=== PATIENT | female | born 1990 | race Caucasian/White ===

== ENCOUNTER → 2019-07-14 | Outpatient (CLI) | payer BC, SELFPAY ==
[2019-07-14 09:59] VITALS: BMI 24.3
[2019-07-16 12:52] LABS: HPV APTIMA, High Risk Negative (Negative)
== END | disposition home or self-care (01) ==
LOC: LABSPEC 11:26
PROVIDERS: Referring Provider Obstetrics & Gynecology; Visit Provider Obstetrics & Gynecology
DX: Z12.4 Encounter for screening for malignant neoplasm of cervix (principal)
CPT/HCPCS: 87624; 88175; G0145

== ENCOUNTER → 2020-03-03 14:48 | Outpatient (CLI) | payer OTHER, SELFPAY ==
[2020-03-03 13:57] VITALS: BMI 24.3
== END ==
PROVIDERS: Referring Provider Obstetrics & Gynecology; Visit Provider Obstetrics & Gynecology
DX: Z34.90 Encounter for supervision of normal pregnancy, unspecified, unspecified trimester (principal)
CPT/HCPCS: 36415; 86850; 86900; 86901

== ENCOUNTER 2021-04-06 16:43 | Outpatient (RCR) | payer OTHER, SELFPAY ==
[2020-03-11 13:09] VITALS: BMI 24.3
== END 2021-05-11 23:59 ==
LOC: IMMUN 16:43
PROVIDERS: PCP Internal Medicine; Visit Provider Family Medicine
DX: Z23 Encounter for immunization (principal)
CPT/HCPCS: 0001A; 0002A; 91300

== ENCOUNTER → 2021-05-02 15:32 | Outpatient (CLI) | payer OTHER, SELFPAY ==
[2020-03-11 13:09] VITALS: BMI 24.3
--- NOTE | 2021-05-02 16:00 | MRI_ITS ---
STUDY: MR PELVIS WITH T WITHOUT CONTRAST REASON FOR EXAM: Female, 31 years old. CONGENITAL MALFORMATION OF UTERUS TECHNIQUE: Standardized fat and water weighted pulse sequences were obtained in all 3 orthogonal planes, pre-and post contrast administration. 15ml DOtarem via IV was administered for the contrast portion of the examination. COMPARISON: None. FINDINGS: Normal urinary bladder. Normal visualized small intestine. Normal visualized colon. There is splitting of the endometrial cavity within the uterus consistent with a uterine anomaly. The uterine fundus has a flat to slightly convex of the serosal margin and contains a 1.5 cm round hypointense mass consistent with a fibroid. The angle between the uterine cavities is 58 degrees. Findings are consistent with a septate uterus. The septum extends inferiorly into the lower uterine segment but not into the cervix where there is a small nabothian cyst. The septum is fibrous within the lower uterine segment but with intervening myometrium in the upper body and fundus the uterus. A small (4 mm) cyst is seen in the endometrium on the left. There is no pelvic fluid. There is no pelvic mass lesion or lymphadenopathy. Normal visualized pelvic arteries. Normal osseous structures. Normal abdominal wall. MRI/Pelvis W/WO Contrast IMPRESSION: Septate uterus as described above. Electronically Signed: Zhang Adams MD at 9:48 EDT Tel , Service support ,
== END ==
PROVIDERS: PCP Internal Medicine; Referring Provider Obstetrics & Gynecology Reproductive Endocrinology; Visit Provider Obstetrics & Gynecology Reproductive Endocrinology
DX: Q51.28 Other and unspecified doubling of uterus (principal)
CPT/HCPCS: 72197; A9575

== ENCOUNTER 2021-11-17 13:08 | Outpatient (CLI) | payer OTHER, SELFPAY ==
[2021-11-17 13:29] LABS: Absolute Lymphocyte Count 1.59 X10^3/uL (0.83-4.51); Absolute Neutrophil Count 9.1 X10^3/uL (2.0-7.7); Basophil# 0.01 X10^3/uL; Basophil% 0.1 % (0-1); Eosinophil# 0.03 X10^3/uL; Eosinophils% 0.3 % (0-5); Hematocrit 33.4 % (37-47); Hemoglobin 11.3 g/dL (12.0-15.0); Lymphocyte # 1.59 X10^3/ul (0.83-4.51); Lymphocyte % 14.2 % (19-41); Mean Corp Hgb Conc 33.8 g/dL (32-36); Mean Corpuscular Hgb 30.3 pg (27.0-32.0); Mean Corpuscular Volume 89.5 fL (81-99); Mean Platelet Vol. 10.7 fl (6.2-12.0); Monocyte# 0.47 X10^3/uL; Monocyte% 4.2 % (0-10); NRBC Flagged by Analyzer 0 % (0-5); Neutrophil # 9.09 X10^3/uL (2.7-7.7); Platelet Count 225 K/mm3 (150-450); RBC Distribution Width CV 12.5 % (11.6-14.6); RBC Distribution Width SD 40.6 fl (35.1-43.9); Red Blood Count 3.73 M/mm3 (4.2-5.4); White Blood Count 11.2 K/mm3 (4.4-11.0)
[2021-11-17 13:36] LABS: Glucose Challenge Gest 1H 50g 166 mg/dL (70-140)
== END 2021-11-17 23:59 | disposition short-term general hospital (02) ==
LOC: PAVLAB 13:09
PROVIDERS: PCP Internal Medicine; Referring Provider Obstetrics & Gynecology; Visit Provider Obstetrics & Gynecology
DX: O26.899 Other specified pregnancy related conditions, unspecified trimester (principal); Z67.91 Unspecified blood type, Rh negative; Z3A.00 Weeks of gestation of pregnancy not specified; Z13.1 Encounter for screening for diabetes mellitus
CPT/HCPCS: 36415; 82950; 85025; 86850; 86900; 86901

== ENCOUNTER 2021-11-23 06:56 | Outpatient (CLI) | payer OTHER, SELFPAY ==
[2021-11-23 07:36] LABS: Glucose GTT-Gestation. Fasting 93 mg/dL (<105)
[2021-11-23 09:01] LABS: Glucose GTT-Gestational 1 Hr 227 mg/dL (<190)
[2021-11-23 10:02] LABS: Glucose GTT-Gestational 2 Hr 202 mg/dL (<165)
[2021-11-23 10:49] LABS: Glucose GTT-Gestational 3 Hr 131 L (<145)
== END 2021-11-23 23:59 | disposition short-term general hospital (02) ==
LOC: LAB 06:57
PROVIDERS: PCP Internal Medicine; Referring Provider Obstetrics & Gynecology; Visit Provider Obstetrics & Gynecology
DX: O99.810 Abnormal glucose complicating pregnancy (principal); Z3A.00 Weeks of gestation of pregnancy not specified
CPT/HCPCS: 36415; 82951; 82952

== ENCOUNTER 2021-12-19 14:00 | Outpatient (RCR) | payer OTHER, SELFPAY | END 2022-01-08 23:59 | LOC: DC 14:00 | PROVIDERS: PCP Internal Medicine; Visit Provider Nurse Practitioner Women's Health | DX: O24.419 Gestational diabetes mellitus in pregnancy, unspecified control (principal) | CPT/HCPCS: 97802; 97803 ==

== ENCOUNTER 2022-01-12 17:08 | Outpatient (CLI) | payer OTHER, SELFPAY | END 2022-01-12 23:59 | disposition home or self-care (01) | PROVIDERS: PCP Internal Medicine; Visit Provider Obstetrics & Gynecology | DX: Z34.90 Encounter for supervision of normal pregnancy, unspecified, unspecified trimester (principal) | CPT/HCPCS: 87081 ==

== ENCOUNTER 2022-01-15 14:24 | Outpatient (CLI) | payer OTHER, SELFPAY ==
--- NOTE | 2022-01-15 14:29 | US_ITS ---
STUDY: SECOND AND THIRD TRIMESTER OBSTETRICAL ULTRASOUND - LIMITED REASON FOR EXAM: Female, 32 years old growth @ 36 weeks LMP: 05/05/2021 PRIOR ULTRASOUND: None. TECHNIQUE: Transabdominal TECHNICAL QUALITY: Adequate. FINDINGS: There is a single intrauterine fetus. The fetus is in a cephalic presentation. There is demonstrated cardiac activity with a heart rate of 125 bpm. There is a normal amniotic fluid volume. The largest amniotic fluid pocket measures 6.33 cm. The amniotic fluid index (RODERICK) is 15.8 cm. The placenta is anterior in location and is not low lying. There are Grade 1 placental changes. BIOMETRY: BPD: 8.58 cm: 34 weeks, 4 days HC: 31.09 cm: 34 weeks, 5 days AC: 32.66 cm: 36 weeks, 4 days FL: 6.9 cm: 35 weeks, 2 days Age by LMP: 36 weeks, 3 days. KAREN by LMP: 02/10/2020. age by current US: 35 weeks, 0 days. KAREN by current US: 02/19/2022. Estimated weight: 2834 grams, +/- 425 grams, 43 percentile. US/OB Limited With Biometrics IMPRESSION: Single live intrauterine gestation with a mean gestational age of 35 weeks. Electronically Signed: Sung Miller MD at 15:41 EST ,
== END 2022-01-15 23:59 | disposition home or self-care (01) ==
PROVIDERS: PCP Internal Medicine; Visit Provider Nurse Practitioner Women's Health
DX: O24.410 Gestational diabetes mellitus in pregnancy, diet controlled (principal); Z3A.36 36 weeks gestation of pregnancy
CPT/HCPCS: 76816

== ENCOUNTER 2022-01-23 17:15 | Inpatient (IN) | payer OTHER, SELFPAY ==
[2022-01-23] VITALS (17 sets, daily range): BP systolic 113–140; BP diastolic 58–96; PULSE 50–67; RESP 16–18; TEMP 36.1–36.9; O2SAT 96–100; BMI 30.2
--- NOTE | 2022-01-23 16:06 | US_ITS ---
STUDY: OBSTETRICAL ULTRASOUND - BIOPHYSICAL PROFILE REASON FOR EXAM: Female, 32 years old. Deceleration in doctor''s office. LMP: 05/05/2021 PRIOR ULTRASOUND: 01/15/2022. TECHNIQUE: Transabdominal TECHNICAL QUALITY: Adequate. FINDINGS: There is a single intrauterine fetus. The fetus is in a cephalic presentation. There is demonstrated cardiac activity with a heart rate of 152 bpm. There is a normal amniotic fluid volume. The largest amniotic fluid pocket measures 6.29 cm. The amniotic fluid index (RODERICK) is 17.34 cm. The placenta is anterior in location and is not low lying. There are Grade 1 placental changes. Age by LMP: 37 weeks, 4 days. KAREN by LMP: 02/09/2022. age by prior US: 36 weeks, 1 days. KAREN by prior US: 12/22/2021. BIOPHYSICAL PROFILE: Breathing Movements (FBM): 0 Gross Body Movements (GBM): 0 Tone (FT): 2 Amniotic Fluid Volume (AFV): 2 TOTAL SCORE: US/Biophysical Prof W/O Non Stres IMPRESSION: biophysical profile of 02/16. Electronically Signed: Macho Wyman DO at 19:10 EDT ,
[2022-01-23] MEDS: Lactated Ringers 1,000 ML 999 ML IV (17:35)
[2022-01-23 17:49] LABS: Absolute Lymphocyte Count 1.72 X10^3/uL (0.83-4.51); Basophil# 0.01 X10^3/uL; Basophil% 0.1 % (0-1); Eosinophil# 0.02 X10^3/uL; Eosinophils% 0.2 % (0-5); Hemoglobin 11.9 g/dL (12.0-15.0); Lymphocyte # 1.72 X10^3/ul (0.83-4.51); Lymphocyte % 20.8 % (19-41); Mean Corpuscular Hgb 29.1 pg (27.0-32.0); Mean Corpuscular Volume 85.6 fL (81-99); Mean Platelet Vol. 12.5 fl (6.2-12.0); Monocyte% 6.1 % (0-10); NRBC Flagged by Analyzer 0 % (0-5); Neutrophil # 5.99 X10^3/uL (2.7-7.7); Neutrophil % 72.6 % (47-70); Platelet Count 209 K/mm3 (150-450); RBC Distribution Width SD 39.6 fl (35.1-43.9); Red Blood Count 4.09 M/mm3 (4.2-5.4); White Blood Count 8.3 K/mm3 (4.4-11.0)
[2022-01-23 17:51] LABS: Bedside Glucose 93 mg/dL (74-106)
[2022-01-23] MEDS: Sodium Citrate/Citric Acid 30 ML UDC PO (17:54)
[2022-01-23] MEDS: Acetaminophen 500 MG Tablet 1000 MG PO (17:54)
[2022-01-23] MEDS: Cefazolin 2 GM in 0.9% Normal Saline 100 ML IV (18:09)
--- NOTE | 2022-01-23 18:28 | PLAC_PTH ---
PATIENT: TOMAS CAMPBELL LOC: [facility] U#:[id number] AGE/SX: 32/F ROOM: 009 RE01/23/[address]: Dr. Luba Colby DO : 1990 BED: 1 DIS: 01/25/2022 SPEC #: [id number] RECD: 01/23/22 22:48 STATUS: TUCKER KELLE #: [id number] FEMI: 01/23/22 18:[address]: Luba Colby DEPT: SURGICAL PATHOLOGY RECD BY: Ashwini Jaquez ENTERED: 01/24/22 09:09 SP TYPE: PLACENTA OTHR DR: Dr. Angelica Aly MD Tissues: Placenta, NOS Procedures: Surgery Specimen Level V HEADER OPERATION: PRE-OP DIAGNOSIS: Nonreactive strip and diabetic TISSUE SUBMITTED: Placenta MICROSCOPIC DIAGNOSIS Shelton placenta (478 gm): Umbilical cord ? trivascular with no inflammation. Placental membranes ? pigmented macrophages suggestive of meconium staining. Placental disc ? Luis E-Krish change and mildly increased intraparenchymal fibrin plaques. AM:abdon 01/25/2022 MICROSCOPIC DESCRIPTION Slides are reviewed. GROSS DESCRIPTION SPECIMEN: PLACENTA / CLINICAL INFORMATION: A. Weight: 2.785 kg B. Gestational Age: 37 weeks C. Sex: Female PLACENTAL WEIGHT (POST FIXATION): 478 gm PLACENTAL DIMENSIONS: 17 x 13 x 3 cm PLACENTAL SHAPE: Usual ovoid PLACENTAL WEIGHT FOR GESTATIONAL AGE: Within 10-99th percentile MEMBRANES - Present A. Insertion: Marginal B. Site of rupture from edge: At edge of placental disc C. Color of membrane: Jay-echevarria D. Abnormalities: None UMBILICAL CORD - Present A. Color: Jay-echevarria B. Insertion: Eccentric C. Length: 56 cm D. Diameter: 1 cm E. Number of vessels: Three F. Abnormalities: The umbilical cord shows significant spiraling. PLACENTAL DISC - Present A. Color of surface: Jay-echevarria B. surface abnormalities: None C. Maternal cotyledons: Intact with minimal tears D. Attached retro placental clot: No clot E. Cut surface: Dark red and spongy F. Lesions: None G. Separate clot: 7 x 5 x 1 cm SECTIONS SUBMITTED: 1. Umbilical cord ( end notched) 2. Umbilical cord, placental end 3. Membrane roll 4. Placental disc, and maternal surfaces 5. Placental disc, and maternal surfaces 6. Placental disc, and maternal surfaces AM:abdon 01/24/2022 TC:5 CPT: 82213
--- NOTE | 2022-01-23 18:54 | HP.PCM.OB_ITS ---
HPI - General General Date of Admission: 01/23/22 HPI Narrative TOMAS CAMPBELL, is a 32 F who presents to L&D after a non-reactive NST was noted. A BPP was performed and found to be 4/8. the tracing was also noted to have minimal variability with small variable decelerations. The decision was made to proceed with an urgent section. The patient denied vaginal bleeding or decreased movement. Maternal Data Information KAREN Calculator Estimated Delivery Date Method Current WG Current Estimate 02/09/22 LMP (Certain) 37w 4d PFSH PFS Medical History Abnormal Pap smear of cervix Gestational diabetes Septate uterus Home Medications Saccharomyces boulardii 250 mg capsule 250 mg PO BID 08/14/21 [History Last Taken Unknown] vitamin#30 30 mg iron-10 mg iron-folic acid 1 mg-omg3 capsule cap PO 08/14/21 [History Last Taken Unknown] blood sugar diagnostic #100 ea 11/23/21 [Rx Last Taken Unknown] blood-glucose meter #1 ea 11/23/21 [Rx Last Taken Unknown] breast pump #1 ea 12/01/21 [Rx Last Taken Unknown] Tresiba FlexTouch U-100 100 unit/mL (3 mL) subcutaneous pen 10 unit SUBCUT DAILY #6 ml NS 01/04/22 [Rx Last Taken Unknown] pen needle, diabetic 32 gauge x /32 #50 ea 01/04/22 [Rx Last Taken Unknown] Allergy/AdvReac Type Severity Reaction Status Date / Time No Known Allergies Allergy Verified 01/23/22 15:06 Family History Grandfather Sudden cardiac Myocardial infarction Mother Heart disease Surgical History Status post colposcopy Vaginal septum Social History Smoking Status: Former smoker alcohol intake: current details: pre substance use type: does not use caffeine: Yes what type of physical activity do you participate in: walking and aerobics frequency: 3-4 times per week seatbelt use: always do you feel safe at home: Yes additional social history: Suman- Suresh 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 questions answered. special requests: [] Plans Covid status: [employer] Flu vaccine: given Tdap vaccine: given Rhogam: given LARC form signed: Yes movement and labor precautions reviewed. Problem list reviewed and updated with the most current plan of care details and appropriate orders placed. Relevant counseling for the gestational age provided. Continue routine care and follow up unless otherwise noted in visit notes/problem list details OB Flowsheet Initial Weight: 160 lb Date -?-?-?-?-?-?-?-?-?-?-?-?- EGA Weight BP Urine Prot -?-?-?-?-?-?-?-?-?-?-?-?- Glucose FHR FuHt Pres Dilation -?-?-?-?-?-?-?-?-?-?-?-?- Effaced St Visit Note 08/14/21 -?-?-?-?-?-?-?-?-?-?-?-?- 14w 3d 160 lb (+0 oz) 120/62 -?-?-?-?-?-?-?-?-?-?-?-?- 145 -?-?-?-?-?-?-?-?-?-?--?-?- SM- [facility]. no vb cramping 09/13/21 -?-?-?-?-?-?-?-?-?-?-?-?- 18w 5d 163 lb 4 oz (+3 lb 4 oz) 118/70 Negative -?-?-?-?-?-?-?-?-?-?-?-?- Negative 154 -?-?-?-?-?-?-?-?-?-?-?-?- -No VB, LOF. F arun vaccine today. MFM anatomy US ordered. 2nd ROR from [facility] for PNL sent 10/17/21 -?-?-?-?-?-?-?-?-?-?-?-?- 23w 4d Negative -?-?-?-?-?-?-?-?-?-?-?-?- Negative -?-?-?-?-?-?-?-?-?-?-?-?- JV- no complaint s today. GCT info given today. plan to do next visit with rhogam 11/17/21 -?-?-?-?-?-?-?-?-?-?-?-?- 28w 0d 178 lb 4 oz (+18 lb 4 oz) 120/80 Negative -?-?-?-?-?-?-?-?-?-?-?-?- Negative 145 -?-?-?-?-?-?-?-?-?-?-?-?- JV- no lof, vagi nal bleeding ,or dec fm. failed 1 hr. will do the 3 hr next week. 12/01/21 -?-?-?-?-?-?-?-?-?-?-?-?- 30w 0d 179 lb 8 oz (+19 lb 8 oz) 122/72 Negative -?-?-?-?-?-?-?-?-?-?-?-?- Negative -?-?-?-?-?-?-?-?-?-?-?-?- JV- highest gluc ose is 120, fasting 80's-90's. no lof, vaginal bleeding, or dec fm. 12/12/21 -?-?-?-?-?-?-?-?-?-?-?-?- 31w 4d 182 lb 2 oz (+22 lb 2 oz) 114/78 Negative -?-?-?-?-?-?-?-?-?-?-?-?- Negative 145 31 -?-?-?-?-?-?-?-?-?-?-?-?- JV- no lof, vagi nal bleeding, or dec fm. saw endo. continue monitoring. 12/25/21 -?-?-?-?-?-?-?-?-?-?-?-?- 33w 3d 190 lb 4 oz (+30 lb 4 oz) 118/80 Negative -?-?-?-?-?-?-?--?-?-?-?-?- Negative 150 34 -?-?-?-?-?-?-?-?-?-?-?-?- MH-No VB, LOF. G ood FM. Glucose readings WNL. Note for massage. Growth US at 36wk ordered. 01/12/22 -?-?-?-?-?-?-?-?-?-?-?-?- 36w 0d 189 lb (+29 lb) 120/78 Negative -?-?-?-?-?-?-?-?-?-?-?-?- Negative 145 36 1 -?-?--?-?-?-?-?-?-?-?-?-?- -2 JV- no l of, vaginal bleeding, or dec fm. No complaints. labor precautions discussed. GBS collected. 01/19/22 -?-?-?-?-?-?-?-?-?-?-?-?- 37w 0d 187 lb (+27 lb) 130/80 Negative -?-?-?-?-?-?-?-?-?-?-?-?- Negative 140 37 -?-?-?-?-?-?-?-?-?-?-?-?- SM- no vb lof go od fm no regular ctx reviewed US. started insulin with dinner so will stat 2x weekly testing. 01/23/22 -?-?-?-?-?-?-?-?-?-?-?-?- 37w 4d 187 lb (+27 lb) 119/76 119/76 Negative -?-?-?-?-?-?-?-?-?-?-?-?- Negative 130 -?-?-?-?-?-?-?-?-?-?-?-?- MH-nonreactive N ST and to WP 01/23/22 -?-?-?-?-?-?-?-?--?-?-?-?- 37w 4d 131/83 140/96 -?-?-?-?-?-?-?-?-?-?-?-?- -?-?-?-?-?-?-?-?-?-?-?-?- NST FHR Rate Baby A Baseline: 140 Variability:: Absent and Minimal Accelerations:: None Decelerations:: Variable NST Reactive:: Non-Reactive FHR Category:: Category II ROS Constitutional Constitutional: Denies change in weight, fatigue, fever(s), headache(s), poor appetite or weakness Eyes Eyes: Denies blurry vision, change in vision, seeing flashes or spots in vision ENT HEENT: Denies dizziness, headache(s), loss taste/smell or sore throat Cardiovascular Cardiovascular: Denies chest pain, dizziness, dyspnea, irregular heart rhythm, leg edema, palpitations, rapid heart rate or vomiting Respiratory/Chest Respiratory/Chest: Denies chest tightness, cough, dyspnea or breast pain Gastrointestinal Gastrointestinal: Denies abdominal pain, anorexia, constipation, cramping, diarrhea, hemorrhoids, vomiting or weight changes Genitourinary Genitourinary: Denies dysuria, flank pain, genital lesions, genital pain, uri nary frequency or urinary urgency Musculoskeletal Musculoskeletal: Denies back pain, difficulty walking, joint pain, limited range of motion, muscle cramps or numbness Integumentary Integumentary: Denies lesions or unusual bruising Neurologic Neurologic: Denies abnormal movements, abnormal speech, dizziness, numbness, seizure-like activity or syncope Psychiatric Psychiatric: Denies anxiety, behavioral changes, change in appetite, change in libido, cognitive impairment, confusion, depression, difficulty concentrating, hallucinations or suicidal thoughts Endocrine Endocrinology: Denies excessive sweating, polydipsia or polyuria Hematologic/Lymphatic Hematologic/Lymphatic: Denies easy bleeding, easy bruising or lymphadenopathy Allergic/Immunologic Allergic/Immunologic: Denies itchy eyes, lip swelling, seasonal rhinorrhea, rhinitis, throat swelling, tongue swelling, eczemia, wheezing or asthma Vital Signs Vital Signs Vital Signs: 01/23/22 16:09 01/23/22 17:40 Pulse Rate 67 65 Blood Pressure 131/83 H 140/96 H BP Systolic 131 140 BP Diastolic 83 96 Physical Exam Const alert, oriented x3, no apparent distress and healthy appearing General Appearance: cooperative; Negative for anxious HEENT normocephalic Face and Sinus: normal facial exam Eyes EOMs intact bilaterally and no scleral icterus General Eye: normal appearance of both eyes Neck full ROM and supple Lymph Lymphatic: no lymphadenopathy noted Chest Chest: abnormal inspection of the chest Resp normal respiratory effort Effort and Inspection: able to speak in complete sentences Cardio regular rate GI soft to palpation and non-tender Inspection: gravid Palpation: soft; Negative for tender external exam normal Back/Spine no CVA tenderness Extremity normal to inspection, full ROM and no clubbing, cyanosis or edema General Extremity: Negative for calf tenderness or edema Skin Lesions: no lesions Rashes: no rashes Psych mental status grossly normal Labs Labs Labs: Blood Type B NEGATIVE Antibody Screen NEGATIVE Hct 35.0 % (37-47) L Hgb 11.9 g/dL (12.0-15.0) L Pap Smear Negative Obstetrics US Glucose 1 Hr 50 gm 166 mg/dL (70-140) H Assessment & Plan (1) Gestational diabetes: QUALIFIERS: Gestational diabetes mellitus control: diet-controlled Trimester: third trimester Qualified Code(s): O24.410 - Gestational diabetes mellitus in , diet controlled COMMENT: insulin now. 2x weekly nsts and deliver at 39. (2) Abnormal glucose affecting : COMMENT: 3 hr gtt abnormal refer to nutrition and Dr. 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 nipt nl per patient. GBS neg (5) History of recurrent miscarriages: COMMENT: evaluated by [facility]. (6) Supervision of normal : COMMENT: KAREN 02/09/22 girl Suman (7) Uterus didelphys in : COMMENT: left horn. natural conception (8) Rh negative, maternal: COMMENT: Rhogam given 06/24/2021. (9) Abnormal test: PLAN: urgent section now for biophysical profile of 4/10. 2 grams ancef ordered event sales manager noted, anesthesia and BILINGUAL SPEECH THERAPIST paged.
--- NOTE | 2022-01-23 19:05 | OP.PCM_ITS ---
Assessment & Plan (1) Abnormal test: (2) Gestational diabetes: QUALIFIERS: Gestational diabetes mellitus control: diet-controlled Trimester: third trimester Qualified Code(s): O24.410 - Gestational diabetes mellitus in , diet controlled COMMENT: insulin now. 2x weekly nsts and deliver at 39. (3) Abnormal glucose affecting : COMMENT: 3 hr gtt abnormal refer to nutrition and Dr. 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 nipt nl per patient. GBS neg (6) History of recurrent miscarriages: COMMENT: evaluated by [facility]. (7) Supervision of normal : COMMENT: KAREN 02/09/22 girl Suman (8) Uterus didelphys in : COMMENT: left horn. natural conception (9) Rh negative, maternal: COMMENT: Rhogam given 06/24/2021. Maternal Data Information KAREN Calculator Estimated Delivery Date Method Current WG Current Estimate 02/09/22 LMP (Certain) 37w 4d Details Operative Information Date of Procedure: 01/23/22 Pre-Operative Diagnosis: 37 weeks 4 days, non-reactive NST, biophysical profile 02/18 Post-Operative Diagnosis: 37 weeks 4 days, non-reactive NST, biophysical profile 02/18 Classification: ELLIS Procedure Type: low transverse development planner #1: Ana M Owen Type of Anesthesia: Spinal Anesthesiologist: Sterling Reich Antibiotic Given: Ancef 2 grams IV x1 Estimated Blood Loss: 700cc Fluids Replaced: 1500cc Findings Description of Procedure: Spinal anesthesia was placed without difficulty. Cowan catheter was placed. The patient was placed in the dorsal supine position with leftward tilt. Patient was prepped and draped in the normal sterile fashion. Pfannenstiel skin incision was made with the scalpel and carried through to the underlying layer of fascia with the scalpel. Fascia was nicked in the midline and the incision extended laterally. The rectus bellies were dissected off superiorly and inferiorly with out complication both sharply and bluntly. The peritoneum was entered digitally. The incision was stretched and a low transverse uterine incision was made with the scalpel. The infant's head was delivered atraumatically followed by the anterior and posterior shoulders without complication the rest of the delivered. The cord was clamped and cut and the infant was handed off to awaiting nurse. The placenta was delivered spontaneously immediately following and was noted to be intact and have a three- vessel cord. The uterus was exteriorized cleared of all clots and debris, and the incision was closed in a double layer closure using #1 vicryl and #1 Monocryl. The ovaries and fallopian tubes were noted to be within normal limits. The uterus was returned to the maternal abdomen and gutters were cleared of all clots and debris. The peritoneum was closed with 3-0 Monocryl in a running fashion. Gloves were changed prior to fascial closure. Fascia was closed with 0 PDS in a running fashion. Subcutaneous tissue was closed with a 3-0 vicryl and the skin was closed with 3-0 Monocryl in a subcuticular fashion. Mepilex dressing was applied without complication. Patient was taken to recovery in stable condition. It was discussed with the patient that based on the clinical information obtained during this encounter, combined with her history, at this time I would recommend either repeat section or for future deliveries if further pregnancies are desired. Presentation: Positive for Vertex Amniotic Fluid Description: Clear Placental Delivery Description: Manual Removal Placenta Disposition: Sent to Pathology Cord Vessel Description: 3 Vessels Cord Entanglement: None Cord Gases: ABG and VBG Infant A Gender: Female (1 minute): 8 (5 minute): 9 Delayed Cord Clamping: Yes Complications Risks of Surgery Discussed w/Patient: Bleeding, Anesthesia Risks, Infection and Need for Future C-Sections Complications: none Multi Select Codes Urinary/Genital Urinary/Genital CPT Codes: 46004 Delivery [facility]
--- NOTE | 2022-01-23 19:23 | PCM.DC ---
Discharge Instructions Diet Discharge Diet: No restrictions Activity Discharge Activity: May Not Drive (for 2 weeks or while taking narcotic pain medications.), May Shower and May Take a Tub Bath (in 7 days.) May resume sexual activity in: 4-6 weeks Weight Bearing Status: Full weight bearing Lifting Restrictions: 20 pounds Dressing / Incision Call your doctor if your incision/area has: Continuous Slow Oozing, Sudden Increased Bleeding, Increased Pain/ Swelling, Increased Redness and Foul Smelling Discharge Call your doctor if you observe: Fever of 101 or Higher and Using more than 1 pad per hour Suture Line Care: Avoid Pulling/Pushing and Avoid Pinching/Bending Cleanse incision/area with: Soap & Water and Keep Dressing Clean & Dry Follow Up Care Please Follow Up With: Luba Colby DO When: Call [phone] to make an appointment for an incision check in 1-2 weeks. Test Results: Test results from this visit will be discussed in further detail at your follow-up appointment, if applicable. Discharge Plan Admission Admit Date/Time: 01/23/22 17:15 Primary Reason for Your Visit: section Attending Provider: Luba Colby Primary Care Provider: Angelica Aly Discharge Orders/Prescriptions Prescriptions: New ibuprofen 800 mg tablet 800 mg PO Q8H PRN (Reason: pain) 7 Days Qty: 30 RF: 0 oxycodone-acetaminophen [Percocet] 5-325 mg tablet 1 tab PO Q4H PRN (Reason: pain) 7 Days Qty: 28 RF: 0 Continued PNV #[id number] 30 mg iron-10 mg iron-1 mg capsule PO RF: 0 Saccharomyces boulardii [Daily Probiotic (S. boulardii)] 250 mg capsule 250 mg PO BID RF: 0 (DME) breast pump Device See Rx Instructions .ROUTE .MEDSUPPLY Qty: 1 RF: 0 Discontinued (DME) Truetrack Test Strip See Rx Instructions .ROUTE .MEDSUPPLY Qty: 100 RF: 4 (DME) blood-glucose meter [Truetrack Blood Glucose System] Kit See Rx Instructions .ROUTE .MEDSUPPLY Qty: 1 RF: 0 Tresiba FlexTouch U-100 100 unit/mL (3 mL) insulin pen 10 unit subcut DAILY Qty: 6 RF: 1 (DME) pen needle, diabetic [BD Ultra-Fine Migdalia Pen Needle] 32 gauge x 5/32 needle See Rx Instructions .ROUTE .MEDSUPPLY Qty: 50 RF: 2 Referrals / Follow Up: Angelica Aly MD [Primary Care Provider] - Disposition Disposition (needs filled in before D/C Order can be placed): Home, Self Care
[2022-01-23] MEDS: Oxytocin 30 units/NS 500 ml 30 UNITS/500 ML IV.SOLN 167 UNITS IV (19:35)
[2022-01-23 20:06] LABS: Bedside Glucose 94 mg/dL (74-106)
[2022-01-23] MEDS: Ketorolac 30 MG/ML Syringe IV (20:14)
[2022-01-23] MEDS: 0.9% Saline Lock 10 ML Syringe IV (20:15)
--- NOTE | 2022-01-23 21:14 | EKG12_ITS ---
Test Reason : BRADYCARDIA Blood Pressure : / mmHG Vent. Rate : 049 BPM Atrial Rate : 049 BPM P-R Int : 128 ms QRS Dur : 090 ms QT Int : 442 ms P-R-T Axes : 065 037 022 degrees QTc Int : 399 ms Sinus bradycardia Low voltage QRS Borderline ECG No previous ECGs available Confirmed by KWADWO MIR, CHLOE ([id number]), visual effects editor TREVOR COLE ([id number]) on 01/25/2022 1:49:13 PM Referred By: Luba Colby Confirmed By:RYAN BURKETT MD
--- NOTE | 2022-01-23 21:36 | NURSING ---
RT at bedside for STAT EKG
[2022-01-23 21:38] LABS: Hematocrit 33.2 % (37-47); Hemoglobin 11.2 g/dL (12.0-15.0); Mean Corp Hgb Conc 33.7 g/dL (32-36); Mean Corpuscular Hgb 29.5 pg (27.0-32.0); Mean Corpuscular Volume 87.4 fL (81-99); Mean Platelet Vol. 12.9 fl (6.2-12.0); Platelet Count 192 K/mm3 (150-450); RBC Distribution Width SD 40.6 fl (35.1-43.9); White Blood Count 11.7 K/mm3 (4.4-11.0)
[2022-01-23] MEDS: Lactated Ringers 1,000 ML 100 ML IV (22:35)
[2022-01-23 22:52] LABS: Pathology Skin Biopsy SEE PATHOLOGY REPORT
[2022-01-24] VITALS (16 sets, daily range): BP systolic 105–128; BP diastolic 60–82; PULSE 56–97; RESP 14–16; TEMP 36.3–36.9; O2SAT 96–100
[2022-01-24] MEDS: Acetaminophen 500 MG Tablet 1000 MG PO ×4 (01:58→19:52)
[2022-01-24] MEDS: Ketorolac 30 MG/ML Syringe IV ×3 (01:58→14:33)
[2022-01-24 05:01] LABS: Hematocrit 29.2 % (37-47); Hemoglobin 10.1 g/dL (12.0-15.0); Mean Corp Hgb Conc 34.6 g/dL (32-36); Mean Corpuscular Hgb 29.9 pg (27.0-32.0); Mean Corpuscular Volume 86.4 fL (81-99); Platelet Count 157 K/mm3 (150-450); RBC Distribution Width SD 40.2 fl (35.1-43.9); Red Blood Count 3.38 M/mm3 (4.2-5.4); White Blood Count 8.9 K/mm3 (4.4-11.0)
[2022-01-24 06:15] LABS: Bedside Glucose 87 mg/dL (74-106)
[2022-01-24] MEDS: Senna/Docusate Sodium 1 Tablet PO (07:58)
--- NOTE | 2022-01-24 08:01 | PN.OBGYN_ITS ---
Subjective Subjective Patient doing well without complaints. Tolerating PO. Up to bedside. Recent DC of molina cath/has not voided yet. Feeding well. Denies chest pain, shortness of breath, calf pain/swelling, fevers, chills, lightheadedness. Objective Data Objective Data Vital Signs: Vital Signs Temp Pulse Resp BP Pulse Ox 97.9 F 72 16 120/66 97 01/24/22 04:05 01/24/22 05:46 01/24/22 05:46 01/24/22 04:05 01/24/22 05:46 Oxygen Delivery Method Room Air Weight: 187 lb Body Mass Index (BMI) 30.2 Intake & Output: Intake and Output for Last 24 Hours 01/22/22 01/23/22 01/24/22 23:59 23:59 23:59 Intake Total 3559.55 / 3559.55 Output Total 250 / 250 1200 / 1200 Balance 3309.55 / 3309.55 -1200 / -1200 Lab / Micro Data Result Diagrams: 01/24/22 04:55 Labs: Laboratory Results - last 24 hr 01/23/22 17:35: WBC 8.3, RBC 4.09 L, Hgb 11.9 L, Hct 35.0 L, MCV 85.6, MCH 29.1, MCHC 34.0, RDW Std Deviation 39.6, RDW Coeff of Lindsey 13.0, Plt Count 209, MPV 12.5 H, Immature Gran % (Auto) 0.200, Neut % (Auto) 72.6 H, Lymph % (Auto) 20.8, Deuel % (Auto) 6.1, Eos % (Auto) 0.2, Baso % (Auto) 0.1, Absolute Neuts (auto) 6.0, Absolute Lymphs (auto) 1.72, Nucleated RBC % 0 01/23/22 17:35: Blood Type B NEGATIVE, Antibody Screen NEGATIVE 01/23/22 17:45: POC Glucose 93 01/23/22 19:59: POC Glucose 94 01/23/22 21:25: Screen NEGATIVE, Baby's Blood Type A POSITIVE, Baby's DESTINY NEGATIVE 01/23/22 21:25: WBC 11.7 H, RBC 3.80 L, Hgb 11.2 L, Hct 33.2 L, MCV 87.4, MCH 29.5, MCHC 33.7, RDW Std Deviation 40.6, RDW Coeff of Lindsey 13.0, Plt Count 192, MPV 12.9 H 01/24/22 04:55: WBC 8.9, RBC 3.38 L, Hgb 10.1 L, Hct 29.2 L, MCV 86.4, MCH 29.9, MCHC 34.6, RDW Std Deviation 40.2, RDW Coeff of Lindsey 13.0, Plt Count 157, MPV 12.0 01/24/22 06:02: POC Glucose 87 Micro: Microbiology 01/23/22 17:35 Nasal Secretion SARS-CoV-2 Antigen (Rapid) - Final Radiography Diagnostic Testing: Radiology Impression Biophysical Profile Ultrasound 01/23/22 16:06 IMPRESSION: biophysical profile of 02/16. Electronically Signed: Macho Wyman DO at 19:10 EDT Reading Location ID and State: [address] [place] [address] Tel [phone], Service support , Physical Exam Const alert and oriented x3 HEENT normocephalic Eyes PERRL Neck full ROM Resp normal respiratory effort GI soft to palpation GI Narrative: FF below U. Dressing dry and intact Palpation: tender other (appropriately) Assessment & Plan (1) Delivery by section: (2) Gestational diabetes: QUALIFIERS: Gestational diabetes mellitus control: diet-controlled Trimester: third trimester Qualified Code(s): O24.410 - Gestational diabetes mellitus in , diet controlled COMMENT: insulin now. 2x weekly nsts and deliver at 39. (3) Rh negative, maternal: QUALIFIERS: Trimester: third trimester Qualified Code(s): O26.893 - Other specified related conditions, third trimester; Z67.91 - Unspecified blood type, Rh negative COMMENT: Rhogam given 06/24/2021. PLAN: s/p LTCS PPD # 1 1. routine post care 2. breast feeding- support given 3. rh negative 4. rubella immune 5. glucose stable
[2022-01-24 09:21] LABS: Bedside Glucose 77 mg/dL (74-106)
[2022-01-24 11:35] LABS: Bedside Glucose 174 mg/dL (74-106)
--- NOTE | 2022-01-24 11:46 | NURSING ---
Dr castano called at 1140 with 2 hour post prandial blood sugar of 174 , message to Faby, will relay to DR Patrick and call with further orders.
--- NOTE | 2022-01-24 13:53 | NURSING ---
Dr. Alatorre's office called back at this time. Nurse Faby states Dr. Patrick wants her to have 5u now of the insulin she was taking in and then 5u at bedtime.
--- NOTE | 2022-01-24 14:01 | NURSING ---
Called Dr. Mireles office to confirm that she does indeed want her to take Tresiba. Nurse Faby talked to Dr. Patrick while this nurse is on hold. Order received for 5u of novalog now and 10u of Triseba at bedtime,
[2022-01-24] MEDS: 0.9% Saline Lock 10 ML Syringe IV (14:33)
[2022-01-24] MEDS: Insulin Lispro 100 UNIT/ML INSULN.PEN SC (17:11)
[2022-01-24] MEDS: Ibuprofen 600 MG Tablet PO (19:52)
[2022-01-24] MEDS: oxyCODONE 5 MG Tablet PO (22:30)
[2022-01-24 22:31] LABS: Bedside Glucose 148 mg/dL (74-106)
[2022-01-25] MEDS: Ibuprofen 600 MG Tablet PO ×2 (02:09→08:25)
[2022-01-25] MEDS: Acetaminophen 500 MG Tablet 1000 MG PO ×2 (02:09→08:25)
[2022-01-25 02:10] VITALS: BP 132/81; PULSE 63; RESP 16; TEMP 36.5; O2SAT 95
[2022-01-25] MEDS: oxyCODONE 5 MG Tablet PO ×2 (03:13→11:45)
[2022-01-25 06:46] LABS: Bedside Glucose 58 mg/dL (74-106)
[2022-01-25 07:06] LABS: Bedside Glucose 97 mg/dL (74-106)
[2022-01-25 07:40] LABS: Bedside Glucose 110 mg/dL (74-106)
--- NOTE | 2022-01-25 08:01 | PN.OBGYN_ITS ---
Subjective Subjective Patient doing well without complaints. Tolerating PO. Ambulating and voiding without difficulty. Feeding well. Denies chest pain, shortness of breath, calf pain/swelling, fevers, chills, lightheadedness. Objective Data Objective Data Vital Signs: Vital Signs Temp Pulse Resp BP Pulse Ox 97.7 F L 63 16 132/81 H 95 01/25/22 02:10 01/25/22 02:10 01/25/22 02:10 01/25/22 02:10 01/25/22 02:10 Oxygen Delivery Method Room Air Weight: 187 lb Body Mass Index (BMI) 30.2 Intake & Output: Intake and Output for Last 24 Hours 01/23/22 01/24/22 01/25/22 23:59 23:59 23:59 Intake Total 3559.55 / 3559.55 1999 Output Total 250 / 250 2550 / 2550 Balance 3309.55 / 3309.55 -550 / -550 Lab / Micro Data Result Diagrams: 01/24/22 04:55 Labs: Laboratory Results - last 24 hr 01/24/22 09:10: POC Glucose 77 01/24/22 11:28: POC Glucose 174 H 01/24/22 22:20: POC Glucose 148 H 01/25/22 06:38: POC Glucose 58 L 01/25/22 07:01: POC Glucose 97 01/25/22 07:24: POC Glucose 110 H Micro: Microbiology 01/23/22 17:35 Nasal Secretion SARS-CoV-2 Antigen (Rapid) - Final ROS Constitutional Constitutional: Denies chills, fatigue, fever(s), poor appetite or weakness Eyes Eyes: Denies blurry vision, change in vision, seeing flashes or spots in vision ENT HEENT: Denies dizziness, headache(s), loss taste/smell or sore throat Cardiovascular Cardiovascular: Denies chest pain, dizziness, dyspnea, irregular heart rhythm, palpitations or rapid heart rate Respiratory/Chest Respiratory/Chest: Denies chest tightness, cough, dyspnea or breast pain Gastrointestinal Gastrointestinal: Denies abdominal pain, constipation or vomiting Genitourinary Genitourinary: Denies dysuria or flank pain Musculoskeletal Musculoskeletal: Denies difficulty walking, joint pain, limited range of motion or numbness Neurologic Neurologic: Denies abnormal movements, abnormal speech, dizziness, numbness, seizure-like activity or syncope Psychiatric Psychiatric: Denies anxiety, behavioral changes, change in appetite, confusion, depression or suicidal thoughts Physical Exam Const alert, oriented x3 and no apparent distress General Appearance: cooperative and comfortable Resp normal respiratory effort Cardio regular rate GI normal to inspection, nondistended, normoactive bowel sounds GI Narrative: uterus is firm below umbilicus Palpation: soft Bimanual Exam - Adnexa, Other: Negative for cul-de-sac fullness Amniotic Fluid: other incision is clean, dry, intact Back/Spine no CVA tenderness and thoraco-lumbar ROM normal Extremity normal to inspection, no clubbing, cyanosis or edema, no calf tenderness and no pedal edema Psych mental status grossly normal, thought process normal, cooperative, affect normal, speech normal, activity/motor behavior normal, denies homicidal ideation and denies suicidal ideation Assessment & Plan (1) Rh negative, maternal: QUALIFIERS: Trimester: third trimester Qualified Code(s): O26.893 - Other specified related conditions, third trimester; Z67.91 - Unspecified blood type, Rh negative COMMENT: Rhogam given 06/24/2021. 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 (5) : QUALIFIERS: Weeks of gestation: 37 weeks Qualified Code(s): Z3A.37 - 37 weeks gestation of COMMENT: goes by Carol. nipt nl per patient. 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 Shine (8) Abnormal test: (9) Delivery by section: (10) History of delivery: COMMENT: urgent section for bpp 02/18 baby girl Silva Orta (11) Gestational diabetes: QUALIFIERS: Gestational diabetes mellitus control: diet-controlled Trimester: third trimester Qualified Code(s): O24.410 - Gestational diabetes mellitus in , diet controlled COMMENT: insulin now. 2x weekly nsts and deliver at 39. PLAN: s/p LTCS PPD # 2 1. routine post care 2. breast feeding- support given 3. rh positive 4. rubella immune 5. plan for dc to home today
[2022-01-25 08:30] VITALS: BP 121/77; PULSE 70; RESP 16; TEMP 36.9; O2SAT 96
[2022-01-25 12:00] VITALS: BP 121/77; PULSE 70; RESP 16; TEMP 36.9; O2SAT 96
== END 2022-01-25 12:26 | disposition home or self-care (01) | DRG 788 ==
LOC: WPOUT 17:16 → WP 17:17
PROVIDERS: Admitting Provider Obstetrics & Gynecology; PCP Internal Medicine; Referring Provider Obstetrics & Gynecology; Visit Provider Obstetrics & Gynecology
DX: O76 Abnormality in fetal heart rate and rhythm complicating labor and delivery (principal); O24.420 Gestational diabetes mellitus in childbirth, diet controlled; Z87.891 Personal history of nicotine dependence; Z37.0 Single live birth; Z3A.37 37 weeks gestation of pregnancy; Q51.28 Other and unspecified doubling of uterus
CPT/HCPCS: 59025; 59050; 76819; 82962; 85025; 85027; 85461; 86850; 86900; 86901; 87426; 88307; 90384; 93005; 99218; J7120; A4216; G0378; J2405; J2790

== ENCOUNTER → 2023-01-31 | Outpatient (CLI) | payer OTHER, SELFPAY ==
[2023-01-31 16:29] LABS: hCG Titer Quant., Serum 4338 mIU/mL (1-3)
== END | disposition home or self-care (01) ==
PROVIDERS: PCP Internal Medicine; Referring Provider Obstetrics & Gynecology; Visit Provider Obstetrics & Gynecology
DX: N96 Recurrent pregnancy loss (principal)
CPT/HCPCS: 36415; 84702

== ENCOUNTER → 2023-02-02 | Outpatient (CLI) | payer OTHER, SELFPAY ==
[2023-02-02 11:08] LABS: hCG Titer Quant., Serum 7189 mIU/mL (1-3)
== END | disposition home or self-care (01) ==
LOC: LAB 10:21
PROVIDERS: PCP Internal Medicine; Visit Provider Obstetrics & Gynecology
DX: N96 Recurrent pregnancy loss (principal)
CPT/HCPCS: 36415; 84702

== ENCOUNTER → 2023-02-21 | Outpatient (CLI) | payer OTHER, SELFPAY ==
--- NOTE | 2023-02-21 12:23 | US_ITS ---
STUDY: FIRST TRIMESTER OBSTETRICAL ULTRASOUND REASON FOR EXAM: Female, 33 years old size and dates LMP: 09/30/2023 TECHNIQUE: Transvaginal TECHNICAL QUALITY: Adequate. PRIOR ULTRASOUND: None. FINDINGS: There is visualization of a single gestational sac in a normal intrauterine position. There is a visualized yolk sac. The yolk sac measures 3 mm. The placenta is non-visualized. There is visualization of a live embryo. The crown-rump length (CRL) measures 1.9 cm, indicating an estimated gestational age (EGA) of 8 weeks, 2 days. There is demonstrated cardiac activity with a heart rate of 164 bpm. The estimated gestation age (EGA) by LMP is 8 weeks, 2 days. The estimated date of delivery (KAREN) by LMP is 09/30/2023. The estimated gestation age (EGA) by US is 8 weeks, 3 days. The estimated date of delivery (KAREN) by US is 10/01/2023. There is a didelphys uterus, is in the left horn. The left uterus measures 12.4 x 5.8 x 7.1 cm. Right measures 13.1 x 4.7 x 6.9 cm. There is a 4.1 x 4.0 x 6.0 cm fibroid in the right uterus. The right ovary measures 2.7 x 2.0 x 1.7 cm. There is no right ovarian cyst. There is no visualized right adnexal mass or complex lesion. The left ovary measures 2.4 x 2.6 x 2.5 cm. There is no left ovarian cyst. There is no visualized left adnexal mass or complex lesion. There is no fluid in the cul de sac. US/Transvaginal w/Preg US IMPRESSION: There is a single live intrauterine within the left half of the didelphys uterus. EGA is 8 weeks 3 days by ultrasound with KAREN of 10/01/2023. Heart rate at 164 bpm. There is a uterine fibroid in the right uterus measuring 4.1 x 4.0 x 6.0 cm. No suspicious adnexal mass or free fluid Electronically Signed: Elver Reyes MD at 14:23 EDT ,
== END | disposition home or self-care (01) ==
PROVIDERS: PCP Internal Medicine; Referring Provider Obstetrics & Gynecology; Visit Provider Obstetrics & Gynecology
DX: N96 Recurrent pregnancy loss (principal)
CPT/HCPCS: 76817

== ENCOUNTER → 2023-02-28 | Outpatient (CLI) | payer OTHER, SELFPAY ==
[2023-03-04 08:08] LABS: Chlamydia By Nucleic Acid AMP Negative (Negative); Gonococcus By Nucleic Acid AMP Negative (Negative)
== END | disposition home or self-care (01) ==
PROVIDERS: PCP Internal Medicine; Visit Provider Advanced Practice Midwife
DX: O09.299 Supervision of pregnancy with other poor reproductive or obstetric history, unspecified trimester (principal); Z86.32 Personal history of gestational diabetes; Z3A.09 9 weeks gestation of pregnancy
CPT/HCPCS: 87086; 87088; 87491; 87591

== ENCOUNTER → 2023-03-07 | Outpatient (CLI) | payer OTHER, SELFPAY ==
[2023-03-07 10:26] LABS: Absolute Lymphocyte Count 1.37 X10^3/uL (0.83-4.51); Absolute Neutrophil Count 4.2 X10^3/uL (2.0-7.7); Basophil# 0.02 X10^3/uL; Basophil% 0.3 % (0-1); Eosinophil# 0.03 X10^3/uL; Eosinophils% 0.5 % (0-5); Hematocrit 37.5 % (37-47); Hemoglobin 12.6 g/dL (12.0-15.0); Lymphocyte # 1.37 X10^3/ul (0.83-4.51); Lymphocyte % 23.6 % (19-41); Mean Corp Hgb Conc 33.6 g/dL (32-36); Mean Corpuscular Hgb 30.5 pg (27.0-32.0); Mean Corpuscular Volume 90.8 fL (81-99); Mean Platelet Vol. 10.6 fl (6.2-12.0); Monocyte# 0.21 X10^3/uL; Monocyte% 3.6 % (0-10); NRBC Flagged by Analyzer 0 % (0-5); Neutrophil # 4.16 X10^3/uL (2.7-7.7); Neutrophil % 71.8 % (47-70); Platelet Count 207 K/mm3 (150-450); RBC Distribution Width CV 12.1 % (11.6-14.6); RBC Distribution Width SD 40.1 fl (35.1-43.9); Red Blood Count 4.13 M/mm3 (4.2-5.4); White Blood Count 5.8 K/mm3 (4.4-11.0)
[2023-03-07 10:45] LABS: Glucose Challenge Gest 1H 50g 140 mg/dL (70-140)
[2023-03-07 11:15] LABS: NATERA MAILED SPECIMEN
[2023-03-07 11:28] LABS: HIV - WCH Non-Reactive (Nonreactive); Hepatitis B Surface Antigen Non-Reactive (Nonreactive); Hepatitis C Antibody Non-Reactive (Nonreactive); Rubella IgG Reactive (Nonreactive); Syphilis Antibodies Non-reactive
== END | disposition home or self-care (01) ==
LOC: PAVLAB 10:09
PROVIDERS: PCP Internal Medicine; Referring Provider Advanced Practice Midwife; Visit Provider Advanced Practice Midwife
DX: O09.299 Supervision of pregnancy with other poor reproductive or obstetric history, unspecified trimester (principal); Z86.32 Personal history of gestational diabetes; Z3A.09 9 weeks gestation of pregnancy
CPT/HCPCS: 36415; 82950; 85025; 86703; 86762; 86780; 86803; 86850; 86900; 86901; 87340

== ENCOUNTER → 2023-03-12 | Outpatient (CLI) | payer OTHER, SELFPAY ==
[2023-03-12 11:33] LABS: Glucose GTT-Gestation. Fasting 102 mg/dL (<105)
[2023-03-12 11:50] LABS: Glucose GTT-Gestational 1 Hr 191 mg/dL (<190)
[2023-03-12 12:50] LABS: Glucose GTT-Gestational 2 Hr 174 mg/dL (<165)
[2023-03-12 13:41] LABS: Glucose GTT-Gestational 3 Hr 104 L (<145)
== END | disposition home or self-care (01) ==
LOC: LAB 09:59
PROVIDERS: PCP Internal Medicine; Referring Provider Advanced Practice Midwife; Visit Provider Advanced Practice Midwife
DX: Z13.1 Encounter for screening for diabetes mellitus (principal)
CPT/HCPCS: 36415; 82951; 82952

== ENCOUNTER → 2023-07-08 | Outpatient (CLI) | payer OTHER, SELFPAY ==
--- NOTE | 2023-07-08 08:57 | US_ITS ---
STUDY: SECOND AND THIRD TRIMESTER OBSTETRICAL ULTRASOUND - LIMITED REASON FOR EXAM: Female, 33 years old growth scan for pregestational diabetes LMP: 12/24/2022. PRIOR ULTRASOUND: 02/21/2023. TECHNIQUE: Transabdominal TECHNICAL QUALITY: Adequate. FINDINGS: There is a single intrauterine fetus. The fetus is in a breech presentation. There is demonstrated cardiac activity with a heart rate of 148 bpm. There is a normal amniotic fluid volume. The largest amniotic fluid pocket measures 4.8 cm. The amniotic fluid index (RODERICK) is 16.8 cm. The placenta is anterior in location and is not low lying. There are Grade 0 placental changes. The cervix measures 3.3 cm in length. The cervix is closed. BIOMETRY: BPD: 6.88 cm: 27 weeks, 5 days HC: 25.99 cm: 28 weeks, 2 days AC: 23.77 cm: 28 weeks, 0 days FL: 5.08 cm: 27 weeks, 2 days Age by LMP: 28 weeks, 0 days. KAREN by LMP: 09/30/2023. age by prior US: 27 weeks, 6 days. KAREN by prior US: 10/01/2023. age by current US: 28 weeks, 0 days. KAREN by current US: 09/30/2023. Estimated weight: 1129 grams, +/- 169 grams, 31 percentile. Gender: Indeterminant US/OB Limited With Biometrics IMPRESSION: Single intrauterine with ultrasound age of 28 weeks and 0 days and estimated date of delivery of 09/30/2023. Breech presentation. Anterior placenta with no previa. Normal amniotic fluid. Normal cardiac activity. Electronically Signed: Flor King, at 17:16 EDT ,
[2023-07-08 10:36] LABS: Absolute Lymphocyte Count 1.82 X10^3/uL (0.83-4.51); Absolute Neutrophil Count 6.6 X10^3/uL (2.0-7.7); Basophil# 0.02 X10^3/uL; Basophil% 0.2 % (0-1); Eosinophil# 0.03 X10^3/uL; Eosinophils% 0.3 % (0-5); Hematocrit 34.1 % (37-47); Hemoglobin 11.2 g/dL (12.0-15.0); Lymphocyte # 1.82 X10^3/ul (0.83-4.51); Lymphocyte % 20.2 % (19-41); Mean Corp Hgb Conc 32.8 g/dL (32-36); Mean Corpuscular Hgb 29.9 pg (27.0-32.0); Mean Corpuscular Volume 91.2 fL (81-99); Mean Platelet Vol. 10.9 fl (6.2-12.0); Monocyte# 0.43 X10^3/uL; Monocyte% 4.8 % (0-10); NRBC Flagged by Analyzer 0 % (0-5); Neutrophil # 6.64 X10^3/uL (2.7-7.7); Neutrophil % 73.9 % (47-70); Platelet Count 193 K/mm3 (150-450); RBC Distribution Width SD 42.5 fl (35.1-43.9); Red Blood Count 3.74 M/mm3 (4.2-5.4)
[2023-07-08 13:05] LABS: HIV - WCH Non-Reactive (Nonreactive); Syphilis Antibodies Non-reactive
== END | disposition home or self-care (01) ==
PROVIDERS: Advanced Practice Midwife; PCP Internal Medicine; Referring Provider Obstetrics & Gynecology; Visit Provider Obstetrics & Gynecology
DX: O26.899 Other specified pregnancy related conditions, unspecified trimester (principal); Z67.91 Unspecified blood type, Rh negative; O24.319 Unspecified pre-existing diabetes mellitus in pregnancy, unspecified trimester; Z3A.00 Weeks of gestation of pregnancy not specified
CPT/HCPCS: 36415; 76816; 85025; 86703; 86780; 86850; 86900; 86901

== ENCOUNTER → 2023-08-07 | Outpatient (CLI) | payer OTHER, SELFPAY ==
--- NOTE | 2023-08-07 11:01 | US_ITS ---
INDICATION: growth COMPARISON: 07/08/2023 OB ultrasound. FINDINGS: 56 echevarria scale ultrasound images demonstrate single live intrauterine in breech presentation, measuring at 32 weeks +1 day average ultrasound age. This gives estimated date of delivery by current ultrasound of 10/01/2023. Estimated weight 1937 g, 39th percentile. heart rate 141 bpm. Adequate amniotic fluid volume of multiple large pockets visualized, RODERICK 17 cm, deepest vertical pocket 5.6 cm. Myometrium is unremarkable. Uterine cervix is long and closed measuring 3.8 cm in length. Anterior placenta is unremarkable for gestational age with the inferior margin well clear of the internal cervical os. Bilateral ovaries are not visualized. No significant free fluid. US/OB Limited With Biometrics IMPRESSION: Single live intrauterine in breech presentation, measuring at 32 weeks +1 day average ultrasound age. Estimated weight 1937 g, 39th percentile. This gives estimated date of delivery by current ultrasound of 10/01/2023. Electronically Signed: Yovani Fortune MD at 17:48 EDT ,
== END | disposition home or self-care (01) ==
LOC: US 11:00
PROVIDERS: PCP Internal Medicine; Referring Provider Obstetrics & Gynecology; Visit Provider Obstetrics & Gynecology
DX: O24.319 Unspecified pre-existing diabetes mellitus in pregnancy, unspecified trimester (principal); Z3A.00 Weeks of gestation of pregnancy not specified
CPT/HCPCS: 76816

== ENCOUNTER 2023-08-17 11:05 | Outpatient (CLI) | payer OTHER, SELFPAY ==
[2023-08-17 11:14] VITALS: TEMP 36.7; O2SAT 99
--- NOTE | 2023-08-17 11:52 | OB.TRI.HP_ITS ---
HPI - General General Date of Admission: 08/17/23 Date of Service: 08/17/23 Chief Complaint: scheduled NST HPI Narrative TOMAS CAMPBELL, is a 33 F who presents for a scheduled NST. at 32 weeks. good fm. no lof/ctx/vb. Maternal Data Information KAREN Calculator Estimated Delivery Date Method Current WG Current Estimate 09/30/23 LMP (Certain) 33w 5d PFSH PFS Medical History Abnormal Pap smear of cervix Gestational diabetes Gestational diabetes Rh negative, maternal Uterus didelphys in Home Medications vitamin#30 30 mg iron-10 mg iron-folic acid 1 mg-omg3 capsule cap PO 08/14/21 [History Last Taken Unknown] blood sugar diagnostic (Blood Glucose Test strips) #50 ea 03/13/23 [Rx Last Taken Unknown] blood-glucose meter #1 ea 03/13/23 [Rx Last Taken Unknown] lancets #100 ea 03/13/23 [Rx Last Taken Unknown] FreeStyle Yadi 3 Sensor (blood-glucose sensor) #2 ea 04/25/23 [Rx Last Taken Unknown] Saccharomyces boulardii 250 mg capsule (Daily Probiotic (S. boulardii)) 250 mg PO BID 04/25/23 [History Last Taken Unknown] Allergy/AdvReac Type Severity Reaction Status Date / Time No Known Allergies Allergy Verified 08/08/23 09:59 Family History Grandfather Sudden cardiac Myocardial infarction Mother Heart disease Surgical History H/O dilation and curettage History of delivery Status post colposcopy Vaginal septum Social History adopted: No household members: family number of children: 1 current occupational status: employed current occupation: [employer] current occupational exposures/hazards: No pets and animals: Yes pets and animals: dog(s) history of recent travel: No sexually active: Yes Smoking Status: Never smoker alcohol intake: current details: pre substance use type: does not use caffeine: Yes Type: coffee Number of servings: 1 what type of physical activity do you participate in: walking and aerobics frequency: 3-4 times per week seatbelt use: always do you feel safe at home: Yes additional social history: Suman- Suresh 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 Date Name GA/Weeks Outcome Route Bth Weight Gen Labor Lgth Anesthesia Del Locatn Provider FOB 01/23/22 Tomas Orta 37 live - full term 6lbs 2oz F emale spinal [facility] Dr. Colby Delivery Date: 01/23/22 Last Updated by: Radha Chery Urgent section for 02/16 BP Visit Details Expected Delivery Route/Plan RLTCS Labor Preferences- CB/BF classes: [] labor support person: [] labor intervention preferences: [] pain management options preferred: [] cut cord/dad catch: [] : [] PP control planned: [] discussed possible routes of delivery and associated risks: [] special requests: [] Plans Covid status: discussed Flu vaccine: discussed Tdap vaccine: given Rhogam: given LARC form signed: declined movement and labor precautions reviewed. Problem list reviewed and updated with the most current plan of care details and appropriate orders placed. Relevant counseling for the gestational age provided. Continue routine care and follow up unless otherwise noted in visit notes/problem list details OB Flowsheet Initial Weight: Not Recorded Date -?-?-?-?-?-?-?-?-?-?-?-?- EGA Weight BP Urine Prot -?-?-?-?-?-?-?-?-?-?-?-?- Glucose FHR FuHt Pres Dilation -?-?-?-?-?-?-?-?-?-?-?-?- Effaced St Visit Note 02/28/23 -?-?-?-?-?-?--?-?-?-?-?-?- 9w 3d 166 lb 2 oz 114/76 -?-?-?-?-?-?-?-?-?-?-?-?- 165 -?-?-?-?-?-?-?-?-?-?-?-?- KW-CRL = dates. CRL~ KW-CRL = dates. KW-CRL = dates. OK for KW-CRL=dates. In left horn. SM scanned. OK for TOLAC 03/28/23 -?-?-?-?-?-?-?-?-?-?-?-?- 13w 3d 166 lb 6 oz 112/69 Nega tive -?-?-?-?-?-?-?-?--?-?-?-?- Negative 159 -?-?-?-?-?-?-?-?-?-?-?-?- JV- pt has pre-G estational DM and will see Dr. Shine. She has the monitor on her arm to see glucose continuously. declines to see the vocal music instructor because she did not get much help from them last . 04/26/23 -?-?-?-?-?-?-?-?-?-?-?-?- 17w 4d 169 lb 110/73 Negative -?-?-?-?-?-?-?-?-?-?-?-?- Negative 150 -?-?-?-?-?-?-?-?-?-?-?-?- Lc- no vb/crampi ng. Fg under 90,meals under 120 has CGM. occ flutters. Lc- no vb/cramping. Fg under 90,meals under 120 has CGM. occ flutters. discussed and declines afp, anatomy scheduled 05/21/23 -?-?-?-?-?-?-?-?-?-?-?-?- 21w 1d 171 lb 94/60 Negative -?--?-?-?-?-?-?-?-?-?-?-?- Negative 145 21 -?-?-?-?-?-?-?-?-?-?-?-?- KW-+FM, no vb/ct x. BS controlled. no concerns 06/20/23 -?-?-?-?-?-?-?-?-?-?-?-?- 25w 3d 174 lb 4 oz 105/65 -?-?-?-?-?-?-?-?-?-?-?-?- 145 25 -?-?-?-?-?-?-?-?-?-?-?-?- SM- discussed di abetes and testing BS controlled get rhogam next time 07/09/23 -?-?-?-?-?-?-?-?-?-?-?-?- 28w 1d 176 lb 8 oz 123/84 Nega tive -?-?-?-?-?-?-?-?-?-?-?-?- Negative 155 29 -?-?-?-?-?-?-?-?--?-?-?-?- SM- no vb lof go od fm no regular ctx tdap and rhogam given 07/23/23 -?-?-?-?-?-?-?-?-?-?-?-?- 30w 1d 180 lb 8 oz 91/61 Nega tive -?-?-?-?-?-?--?-?-?-?-?-?- Negative 160 31 -?-?-?-?-?-?-?-?-?-?-?-?- SM- no vb lof go od fm no reuglar ctx BS controlled 08/08/23 -?-?-?-?-?-?-?-?-?-?-?-?- 32w 3d 182 lb 4 oz 120/80 Nega tive -?-?-?-?-?-?-?-?-?-?-?-?- Negative 150 -?-?-?-?-?-?-?-?-?-?-?-?- JV- NST reactive . glucose levels still stable. Growth scan yesterday was 39th% with Ernestina 17. pt wants to fly to [place] (8 hr flight) we talked a lot about the option NST FHR Rate Baby A Baseline: 130 Variability:: Moderate Accelerations:: 15 x 15 Decelerations:: None NST Reactive:: Yes FHR Category:: Category I Uterine Activity:: none Assessment & Plan (1) Pregestational diabetes mellitus, modified White class B: COMMENT: Dr. shine managing, delivery by 39 weeks discussed. diet controlled. recommend weekly nsts at 32growth us q 4 weeks. (2) Rh negative status during : COMMENT: Rhogam at 28 weeks and PRN (3) Desires (vaginal after ) trial: COMMENT: 40% ok per SM, schedule cs or IOL at 39 weeks. RLTCS scheduled for 09/24 @ 7:30a with JV (4) Supervision of high risk , antepartum: COMMENT: PRR EDD1/ PC You Suman (5) : QUALIFIERS: Weeks of gestation: 32 weeks Qualified Code(s): Z3A.32 - 32 weeks gestation of COMMENT: nl anatomy, nipt low risk, declined carrier and afp. PLAN: Plan Patient presents for triage evaluation secondary to scheduled NST for gestational diabetes. FHT: Moderate variability reactive no decelerations category I tracing [place]: no Contractions Assessment and plan: Reactive NST, reassuring maternal and status patient discharged to home to follow-up in office for next appt. See problem list details for additional plan information. Charges/Coding Procedures Urinary/Genital [id number]: [id number] non-stress test Interp
== END 2023-08-17 11:52 | disposition home or self-care (01) ==
LOC: WPOUT 11:12 → WP 11:13
PROVIDERS: PCP Internal Medicine; Visit Provider Registered Nurse
DX: O24.113 Pre-existing type 2 diabetes mellitus, in pregnancy, third trimester (principal); O26.893 Other specified pregnancy related conditions, third trimester; Z3A.32 32 weeks gestation of pregnancy
CPT/HCPCS: 59025; 59050; 99221; G0378

== ENCOUNTER → 2023-09-03 | Outpatient (CLI) | payer OTHER, SELFPAY ==
--- NOTE | 2023-09-03 09:33 | US_ITS ---
STUDY: SECOND AND THIRD TRIMESTER OBSTETRICAL ULTRASOUND-Limited REASON FOR EXAM: Female, 33 years old routine survey LMP: Unknown. TECHNIQUE: Transabdominal TECHNICAL QUALITY: Adequate. PRIOR ULTRASOUND: 08/07/2023 FINDINGS: There is a single intrauterine fetus. The fetus is in a breech presentation. There is demonstrated cardiac activity with a heart rate of 150 bpm. There is a normal amniotic fluid volume. The largest amniotic fluid pocket measures 5.58 cm. The amniotic fluid index (RODERICK) is 17.3 cm. The placenta is anterior in location and is not low lying. There are Grade 1 placental changes. The cervix was not measured BIOMETRY: BPD: 8.7 cm: 35 weeks, 1 days HC: 31.8 cm: 35 weeks, 5 days AC: 30.8 cm: 34 weeks, 5 days FL: 6.9 cm: 35 weeks, 2 days age by current US: 35 weeks, 3 days. KAREN by current US: 10/05/2023. Estimated weight: 2595 grams, +/- 389 grams, 25 %. age by prior US: 32 weeks, 1 days. KAREN by prior US: 10/01/2023. Contemporary Or Modern Dancer notes a heterogeneous structure near the fundus measuring 6.7 x 5.6 x 4.3 cm, likely a fibroid. US/OB Limited With Biometrics IMPRESSION: Single live intrauterine of 35 weeks, 3 days by current ultrasound with KAREN of 10/05/2023. Heart rate of 150 bpm. Presentation on this study is breech. Normal growth noted since the previous study Contemporary Or Modern Dancer notes a likely fundal fibroid Electronically Signed: Elver Reyes MD at 15:31 EDT ,
== END | disposition home or self-care (01) ==
PROVIDERS: PCP Internal Medicine; Referring Provider Obstetrics & Gynecology; Visit Provider Obstetrics & Gynecology
DX: O24.313 Unspecified pre-existing diabetes mellitus in pregnancy, third trimester (principal); Z3A.36 36 weeks gestation of pregnancy
CPT/HCPCS: 76816

== ENCOUNTER → 2023-09-04 | Outpatient (CLI) | payer OTHER, SELFPAY | END | disposition home or self-care (01) | LOC: LABSPEC 16:17 | PROVIDERS: Referring Provider Obstetrics & Gynecology; Visit Provider Obstetrics & Gynecology | DX: O09.90 Supervision of high risk pregnancy, unspecified, unspecified trimester (principal); Z3A.00 Weeks of gestation of pregnancy not specified | CPT/HCPCS: 87081 ==

== ENCOUNTER 2023-09-18 11:50 | Outpatient (CLI) | payer OTHER, SELFPAY ==
--- NOTE | 2023-09-18 11:59 | US_ITS ---
STUDY: OBSTETRICAL ULTRASOUND - BIOPHYSICAL PROFILE REASON FOR EXAM: Female, 33 years old variables LMP: December 24, 2022. PRIOR ULTRASOUND: Comparison is made with prior study September 03, 2023. TECHNIQUE: Transabdominal TECHNICAL QUALITY: Adequate. FINDINGS: There is a single intrauterine fetus. The fetus is in a breech presentation. There is demonstrated cardiac activity with a heart rate of 154 bpm. There is a normal amniotic fluid volume. The largest amniotic fluid pocket measures 6.6 cm x 5.2 cm. The amniotic fluid index (RODERICK) is 17.9 cm. The placenta is anterior in location and is not low lying. There are Grade 1 placental changes. Age by LMP: 38 weeks, 2 days. KAREN by LMP: September 30, 2023. age by prior US: 37 weeks, 4 days. KAREN by prior US: October 05, 2023. There appears to be a nuchal cord. BIOPHYSICAL PROFILE: Breathing Movements (FBM): 2 Gross Body Movements (GBM): 2 Tone (FT): 2 Amniotic Fluid Volume (AFV): 2 TOTAL SCORE: 8 / 8 US/Biophysical Prof W/O Non Stres IMPRESSION: Normal biophysical profile of 8/8. There appears to be a nuchal cord. Electronically Signed: Sung Miller MD at 14:13 EST ,
[2023-09-18 12:12] VITALS: BP 110/66; PULSE 80; PULSE 88; TEMP 36.2; O2SAT 98
[2023-09-18 12:16] VITALS: BMI 29.5
--- NOTE | 2023-09-18 12:40 | OB.TRI.HP_ITS ---
HPI - General General Date of Admission: 09/18/23 HPI Narrative TOMAS CAMPBELL, is a 33 y/o @ 38 weeks 2 days who presents to L&D due to having a couple of carrot-like decelerations in the office today. She gets NSTs for GDM and AMA. Her baby is breech and unless flips and goes into spontaneous labor, she has a repeat section scheduled for 39 weeks. Maternal Data Information KAREN Calculator Estimated Delivery Date Method Current WG Current Estimate 09/30/23 LMP (Certain) 38w 6d PFSH PFS Medical History Abnormal Pap smear of cervix Gestational diabetes Gestational diabetes Rh negative, maternal Uterus didelphys in Home Medications vitamin#30 30 mg iron-10 mg iron-folic acid 1 mg-omg3 capsule 1 cap PO DAILY 08/14/21 [History Last Taken 09/17/23 20:00 1 cap] blood sugar diagnostic (Blood Glucose Test strips) #50 ea 03/13/23 [Rx Last Taken Unknown] blood-glucose meter #1 ea 03/13/23 [Rx Last Taken Unknown] lancets #100 ea 03/13/23 [Rx Last Taken Unknown] FreeStyle Yadi 3 Sensor (blood-glucose sensor) #2 ea 04/25/23 [Rx Last Taken Unknown] Saccharomyces boulardii 250 mg capsule (Daily Probiotic (S. boulardii)) 250 mg PO BID 04/25/23 [History Last Taken 09/17/23 20:00 250 mg] Allergy/AdvReac Type Severity Reaction Status Date / Time No Known Allergies Allergy Verified 09/18/23 12:14 Family History Grandfather Sudden cardiac Myocardial infarction Mother Heart disease Surgical History H/O dilation and curettage History of delivery Status post colposcopy Vaginal septum Social History adopted: No household members: family number of children: 1 current occupational status: employed current occupation: [employer] current occupational exposures/hazards: No pets and animals: Yes pets and animals: dog(s) history of recent travel: No sexually active: Yes Smoking Status: Never smoker alcohol intake: current details: pre substance use type: does not use caffeine: Yes Type: coffee Number of servings: 1 what type of physical activity do you participate in: walking and aerobics frequency: 3-4 times per week seatbelt use: always do you feel safe at home: Yes additional social history: Suman- Kerwin 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 Date Name GA/Weeks Outcome Route Bth Weight Gen Labor Lgth Anesthesia Del Locatn Provider FOB 01/23/22 Tomas Orta 37 live - full term 6lbs 2oz F emale spinal [facility] Dr. Colby Delivery Date: 01/23/22 Last Updated by: Radha Chery Urgent section for 02/16 [facility] [place] Visit Details Expected Delivery Route/Plan RLTCS Labor Preferences- CB/BF classes: [] labor support person: [] labor intervention preferences: [] pain management options preferred: [] cut cord/dad catch: [] : [] PP control planned: [] discussed possible routes of delivery and associated risks: [] special requests: [] Plans Covid status: discussed Flu vaccine: discussed Tdap vaccine: given Rhogam: given LARC form signed: declined movement and labor precautions reviewed. Problem list reviewed and updated with the most current plan of care details and appropriate orders placed. Relevant counseling for the gestational age provided. Continue routine care and follow up unless otherwise noted in visit notes/problem list details OB Flowsheet Initial Weight: Not Recorded Date -?-?-?-?-?-?-?-?-?-?-?-?- EGA Weight BP Urine Prot -?-?-?-?-?-?-?-?-?-?-?-?- Glucose FHR FuHt Pres Dilation -?-?-?-?-?-?-?-?-?-?-?-?- Effaced St Visit Note 02/28/23 -?-?-?-?-?-?-?-?-?-?-?-?- 9w 3d 166 lb 2 oz 114/76 -?-?-?-?-?-?-?-?-?-?-?-?- 165 -?-?-?-?-?-?-?-?-?-?-?-?- KW-CRL = dates. CRL~ KW-CRL = dates. KW-CRL = dates. OK for KW-CRL=dates. In left horn. SM scanned. OK for TOLAC 03/28/23 -?-?-?-?-?-?-?-?-?-?-?-?- 13w 3d 166 lb 6 oz 112/69 Nega tive -?-?-?-?-?-?-?-?-?-?-?-?- Negative 159 -?-?-?-?-?-?-?-?-?--?-?-?- JV- pt has pre-G estational DM and will see Dr. Shine. She has the monitor on her arm to see glucose continuously. declines to see the product development worker because she did not get much help from them last . 04/26/23 -?-?-?-?-?-?-?-?-?-?-?-?- 17w 4d 169 lb 110/73 Negative -?-?-?-?-?-?-?-?-?-?-?-?- Negative 150 -?-?-?-?-?-?-?-?-?-?-?-?- Lc- no vb/crampi ng. Fg under 90,meals under 120 has CGM. occ flutters. Lc- no vb/cramping. Fg under 90,meals under 120 has CGM. occ flutters. discussed and declines afp, anatomy scheduled 05/21/23 -?-?-?-?-?-?-?-?-?-?-?-?- 21w 1d 171 lb 94/60 Negative -?-?-?-?-?-?-?-?-?-?-?-?- Negative 145 21 -?-?-?-?-?-?-?-?-?-?-?-?- KW-+FM, no vb/ct x. BS controlled. no concerns 06/20/23 -?-?-?-?-?-?-?-?-?-?-?-?- 25w 3d 174 lb 4 oz 105/65 -?-?-?-?-?-?-?-?-?-?-?-?- 145 25 -?-?-?-?-?-?-?-?-?-?-?-?- SM- discussed di abetes and testing BS controlled get rhogam next time 07/09/23 -?-?-?-?-?-?-?-?-?-?-?-?- 28w 1d 176 lb 8 oz 123/84 Nega tive -?-?-?-?-?-?-?-?-?-?-?-?- Negative 155 29 -?-?-?-?-?-?-?-?-?-?-?-?- SM- no vb lof go od fm no regular ctx tdap and rhogam given 07/23/23 -?-?-?-?-?-?-?-?-?-?-?-?- 30w 1d 180 lb 8 oz 91/61 Nega tive -?-?-?-?-?-?-?-?-?-?-?-?- Negative 160 31 -?-?-?-?--?-?-?-?-?-?-?-?- SM- no vb lof go od fm no reuglar ctx BS controlled 08/08/23 -?-?-?-?-?-?-?-?-?-?-?-?- 32w 3d 182 lb 4 oz 120/80 Nega tive -?-?-?-?-?-?-?-?-?--?-?-?- Negative 150 -?-?-?-?-?-?-?-?-?-?-?-?- JV- NST reactive . glucose levels still stable. Growth scan yesterday was 39th% with Ernestina 17. pt wants to fly to [place] (8 hr flight) we talked a lot about the option 08/21/23 -?-?-?-?-?-?-?-?-?-?-?-?- 34w 2d 182 lb 6 oz 110/78 Nega tive -?-?-?-?-?-?-?-?-?-?-?-?- Negative 140 -?-?-?-?-?-?-?-?-?-?-?-?- JV- nst reactive . glucose levels are normal. 08/29/23 -?-?-?-?-?-?-?-?-?-?-?-?- 35w 3d 182 lb 4 oz 112/75 Nega tive -?-?-?-?-?-?-?-?-?-?-?-?- Negative 140 -?-?-?-?-?-?-?-?-?-?-?-?- SM- no vb lof go od fm n oregular ctx BG wnl 09/04/23 -?-?-?-?-?-?-?-?-?-?-?-?- 36w 2d 182 lb 2 oz 119/75 Nega tive -?-?-?-?-?-?-?-?-?-?-?-?- Negative 150 39 Breech 0 -?-?-?-?-?-?-?-?-?-?-?-?- JV- NST reactive . glucose levels normal. GBS today JV- NST reactive. glucose le vels normal. GBS today ultrasound reviewed. has a 7 cm fundal f ibroid that is skewing fundal heights. if baby flips and goes into labor wants to . 09/11/23 -?-?-?-?-?-?-?-?-?-?-?-?- 37w 2d 184 lb 4 oz 113/78 Nega tive -?-?-?-?-?-?-?-?-?-?-?-?- Negative 160 Breech -?-?-?-?-?-?-?-?-?-?-?-?- JV- still breech today. wants to come in prior to section to be scanned one last time. has routine exam next visit. glucose levels are normal. (not on meds but doing nsts. nst reactive) she is very hopeful to . 09/18/23 -?-?-?-?-?-?-?-?-?-?-?-?- 38w 2d 186 lb 4 oz 136/81 Nega tive -?-?-?-?-?-?-?-?-?-?-?-?- Negative 150 Breech -?-?-?-?-?-?-?-?-?-?-?-?- JV- 3 small vari able (carrot looking) decelerations) and intermittent contractions. sending to l&D for BPP and prolonged monitoring. ROS Constitutional Constitutional: Reports systems reviewed and no addt'l complaints, except as documented Gastrointestinal Gastrointestinal: Denies bloating, constipation, cramping, diarrhea, nausea or vomiting Genitourinary Genitourinary: Reports other Details: Denies vaginal odor, vaginal bleeding, or vaginal discharge ; Denies difficulty urinating or flank pain NST FHR Rate Baby A Baseline: 140 Variability:: Moderate Accelerations:: 15 x 15 Decelerations:: None NST Reactive:: Yes FHR Category:: Category I Assessment & Plan (1) Pregestational diabetes mellitus, modified White class B: COMMENT: Dr. shine managing, delivery by 39 weeks discussed. diet controlled. recommend weekly nsts at 32growth us q 4 weeks. (2) Rh negative status during : COMMENT: Rhogam at 28 weeks and PRN (3) Desires (vaginal after ) trial: COMMENT: 40% ok per SM, schedule cs or IOL at 39 weeks. RLTCS scheduled for 09/24 @ 7:30a with AmarjitV (4) Supervision of high risk , antepartum: COMMENT: PRR EDD1/ CICI Orta Suman (5) : QUALIFIERS: Weeks of gestation: 38 weeks Qualified Code(s): Z3A.38 - 38 weeks gestation of COMMENT: GBS negative.nl anatomy, nipt low risk, declined carrier and afp. (6) Uterus didelphys in : COMMENT: on left side. 4cm fibroid in right (7) History of delivery: COMMENT: urgent section for bpp 02/18 baby girl Tomas Orta (8) History of recurrent miscarriages: COMMENT: evaluated by RGI. on progesterone PLAN: Plan NST reactive without decelerations. BPP is 06/18 ok to dc to home and continue close outpatient follow up. Charges/Coding Multi Select Codes Urinary/Genital Urinary/Genital CPT Codes: 57917-02 non-stress test Interp
[2023-09-18] MEDS: 0.9 % NaCl (Sterile) Posiflush 10 mL IV (12:41)
[2023-09-18 12:43] LABS: Absolute Lymphocyte Count 1.85 X10^3/uL (0.83-4.51); Absolute Neutrophil Count 6.4 X10^3/uL (2.0-7.7); Basophil# 0.01 X10^3/uL; Basophil% 0.1 % (0-1); Eosinophil# 0.02 X10^3/uL; Eosinophils% 0.2 % (0-5); Hematocrit 37.3 % (37-47); Hemoglobin 12.3 g/dL (12.0-15.0); Lymphocyte # 1.85 X10^3/ul (0.83-4.51); Mean Corpuscular Hgb 29.9 pg (27.0-32.0); Mean Corpuscular Volume 90.5 fL (81-99); Mean Platelet Vol. 11.8 fl (6.2-12.0); Monocyte# 0.49 X10^3/uL; Monocyte% 5.6 % (0-10); NRBC Flagged by Analyzer 0 % (0-5); Neutrophil % 72.6 % (47-70); Platelet Count 184 K/mm3 (150-450); RBC Distribution Width CV 13.1 % (11.6-14.6); RBC Distribution Width SD 43.2 fl (35.1-43.9); Red Blood Count 4.12 M/mm3 (4.2-5.4); White Blood Count 8.8 K/mm3 (4.4-11.0)
== END 2023-09-18 14:11 | disposition home or self-care (01) ==
LOC: WPOUT 11:54 → WP 11:55
PROVIDERS: Visit Provider Obstetrics & Gynecology
DX: O36.8330 Maternal care for abnormalities of the fetal heart rate or rhythm, third trimester, not applicable or unspecified (principal); O24.113 Pre-existing type 2 diabetes mellitus, in pregnancy, third trimester; O26.893 Other specified pregnancy related conditions, third trimester; O34.03 Maternal care for unspecified congenital malformation of uterus, third trimester; Q51.28 Other and unspecified doubling of uterus; Z3A.38 38 weeks gestation of pregnancy
CPT/HCPCS: 36415; 59025; 59050; 76819; 85025; 99221; G0378

== ENCOUNTER 2023-09-20 13:55 | Outpatient (CLI) | payer OTHER, SELFPAY ==
[2023-09-20 14:12] VITALS: BP 108/61; PULSE 92; TEMP 36.6; O2SAT 100; O2SAT 98
[2023-09-20 14:30] VITALS: BMI 29.9
[2023-09-20 18:06] VITALS: BP 137/84; PULSE 108; O2SAT 98
--- NOTE | 2023-09-22 09:36 | OB.TRI.HP_ITS ---
HPI - General General Date of Admission: 09/20/23 HPI Narrative TOMAS CAMPBELL, is a 33 y/o @ 38 weeks 4 days who presents to L&D for the complaint of decreased movement. Maternal Data Information KAREN Calculator Estimated Delivery Date Method Current WG Current Estimate 09/30/23 LMP (Certain) 38w 6d PFSH PFSH Medical History Abnormal Pap smear of cervix Gestational diabetes Gestational diabetes Rh negative, maternal Uterus didelphys in Home Medications vitamin#30 30 mg iron-10 mg iron-folic acid 1 mg-omg3 capsule 1 cap PO DAILY 08/14/21 [History Last Taken 09/17/23 20:00 1 cap] blood sugar diagnostic (Blood Glucose Test strips) #50 ea 03/13/23 [Rx Last Taken Unknown] blood-glucose meter #1 ea 03/13/23 [Rx Last Taken Unknown] lancets #100 ea 03/13/23 [Rx Last Taken Unknown] FreeStyle Yadi 3 Sensor (blood-glucose sensor) #2 ea 04/25/23 [Rx Last Taken Unknown] Saccharomyces boulardii 250 mg capsule (Daily Probiotic (S. boulardii)) 250 mg PO BID 04/25/23 [History Last Taken 09/17/23 20:00 250 mg] Allergy/AdvReac Type Severity Reaction Status Date / Time No Known Allergies Allergy Verified 09/18/23 12:14 Family History Grandfather Sudden cardiac Myocardial infarction Mother Heart disease Surgical History H/O dilation and curettage History of delivery Status post colposcopy Vaginal septum Social History adopted: No household members: family number of children: 1 current occupational status: employed current occupation: [employer] current occupational exposures/hazards: No pets and animals: Yes pets and animals: dog(s) history of recent travel: No sexually active: Yes Smoking Status: Never smoker alcohol intake: current details: pre substance use type: does not use caffeine: Yes Type: coffee Number of servings: 1 what type of physical activity do you participate in: walking and aerobics frequency: 3-4 times per week seatbelt use: always do you feel safe at home: Yes additional social history: Suman- Suresh 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 Date Name GA/Weeks Outcome Route Bth Weight Gen Labor Lgth Anesthesia Del Locatn Provider FOB 01/23/22 Tomas Orta 37 live - full term 6lbs 2oz F emale spinal [facility] Dr. Colby Delivery Date: 01/23/22 Last Updated by: Radha Chery Urgent section for 02/16 BPP Visit Details Expected Delivery Route/Plan RLTCS Labor Preferences- CB/BF classes: [] labor support person: [] labor intervention preferences: [] pain management options preferred: [] cut cord/dad catch: [] : [] PP control planned: [] discussed possible routes of delivery and associated risks: [] special requests: [] Plans Covid status: discussed Flu vaccine: discussed Tdap vaccine: given Rhogam: given LARC form signed: declined movement and labor precautions reviewed. Problem list reviewed and updated with the most current plan of care details and appropriate orders placed. Relevant counseling for the gestational age provided. Continue routine care and follow up unless otherwise noted in visit notes/problem list details OB Flowsheet Initial Weight: Not Recorded Date -?-?-?-?-?-?-?-?-?-?-?-?- EGA Weight BP Urine Prot -?-?-?-?-?-?-?--?-?-?-?-?- Glucose FHR FuHt Pres Dilation -?-?-?-?-?-?-?-?-?-?-?-?- Effaced St Visit Note 02/28/23 -?-?-?-?-?-?-?-?-?-?-?-?- 9w 3d 166 lb 2 oz 114/76 -?-?-?-?-?-?-?-?-?-?-?-?- 165 -?-?-?-?-?-?-?-?-?-?-?-?- KW-CRL = dates. CRL~ KW-CRL = dates. KW-CRL = dates. OK for KW-CRL=dates. In left horn. SM scanned. OK for TOLAC 03/28/23 -?-?-?-?-?-?-?-?-?-?-?-?- 13w 3d 166 lb 6 oz 112/69 Nega tive -?-?-?-?-?-?-?-?-?-?-?-?- Negative 159 -?-?-?-?-?-?-?-?-?-?-?-?- JV- pt has pre-G estational DM and will see Dr. Shine. She has the monitor on her arm to see glucose continuously. 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 04/26/23 -?-?-?-?-?-?-?-?-?-?-?-?- 17w 4d 169 lb 110/73 Negative -?-?-?-?-?-?-?-?-?-?-?-?- Negative 150 -?-?-?-?-?-?-?-?-?-?-?-?- Lc- no vb/crampi ng. Fg under 90,meals under 120 has CGM. occ flutters. Lc- no vb/cramping. Fg under 90,meals under 120 has CGM. occ flutters. discussed and declines afp, anatomy scheduled 05/21/23 -?-?-?-?-?-?-?-?-?-?-?-?- 21w 1d 171 lb 94/60 Negative -?-?-?-?-?-?-?-?-?-?-?-?- Negative 145 21 -?-?-?-?-?-?-?-?-?-?-?-?- KW-+FM, no vb/ct x. BS controlled. no concerns 06/20/23 -?-?-?-?-?-?-?-?-?-?-?-?- 25w 3d 174 lb 4 oz 105/65 -?-?-?-?--?-?-?-?-?-?-?-?- 145 25 -?-?-?-?-?-?-?-?-?-?-?-?- SM- discussed di abetes and testing BS controlled get rhogam next time 07/09/23 -?-?-?-?-?-?-?-?-?-?-?-?- 28w 1d 176 lb 8 oz 123/84 Nega tive -?-?-?-?-?-?-?-?-?-?-?-?- Negative 155 29 -?-?-?-?-?-?-?-?-?-?-?-?- SM- no vb lof go od fm no regular ctx tdap and rhogam given 07/23/23 -?-?-?-?-?-?-?-?-?-?-?-?- 30w 1d 180 lb 8 oz 91/61 Nega tive -?-?-?-?-?-?-?-?-?-?-?-?- Negative 160 31 -?-?-?-?-?-?-?-?-?-?-?-?- SM- no vb lof go od fm no reuglar ctx BS controlled 08/08/23 -?-?-?-?-?-?-?-?-?-?-?-?- 32w 3d 182 lb 4 oz 120/80 Nega tive -?-?-?-?-?-?-?-?-?-?-?-?- Negative 150 -?-?-?-?-?-?-?-?-?-?-?-?- JV- NST reactive . glucose levels still stable. Growth scan yesterday was 39th% with Ernestina 17. pt wants to fly [place] (8 hr flight) we talked a lot about the option 08/21/23 -?-?-?-?-?-?-?-?-?-?-?-?- 34w 2d 182 lb 6 oz 110/78 Nega tive -?-?-?-?-?-?-?-?-?-?--?-?- Negative 140 -?-?-?-?-?-?-?-?-?-?-?-?- JV- nst reactive . glucose levels are normal. 08/29/23 -?-?-?-?-?-?-?-?-?-?-?-?- 35w 3d 182 lb 4 oz 112/75 Nega tive -?-?-?-?-?-?-?-?-?-?-?-?- Negative 140 -?-?-?-?-?-?-?-?-?-?-?-?- SM- no vb lof go od fm n oregular ctx BG wnl 09/04/23 -?-?-?-?-?-?-?-?-?-?-?-?- 36w 2d 182 lb 2 oz 119/75 Nega tive -?-?-?-?-?-?-?-?-?-?-?-?- Negative 150 39 Breech 0 -?-?-?-?-?-?-?-?-?-?-?-?- JV- NST reactive . glucose levels normal. GBS today JV- NST reactive. glucose le vels normal. GBS today ultrasound reviewed. has a 7 cm fundal f ibroid that is skewing fundal heights. i f baby flips and goes into labor wants to . 09/11/23 -?-?-?-?-?-?-?-?-?-?-?-?- 37w 2d 184 lb 4 oz 113/78 Nega tive -?-?-?-?-?-?-?-?-?-?-?-?- Negative 160 Breech -?-?-?-?-?-?-?-?-?-?-?-?- JV- still breech today. wants to come in prior to section to be scanned one last time. has routine exam next visit. glucose levels are normal. (not on meds but doing nsts. nst reactive) she is very hopeful to . 09/18/23 -?-?-?-?-?-?-?-?-?-?-?-?- 38w 2d 186 lb 4 oz 136/81 Nega tive -?-?-?-?-?-?-?-?-?-?--?-?- Negative 150 Breech -?-?-?-?-?-?-?-?-?-?-?-?- JV- 3 small vari able (carrot looking) decelerations) and intermittent contractions. sending to l&D for BPP and prolonged monitoring. ROS Constitutional Constitutional: Reports systems reviewed and no addt'l complaints, except as documented Gastrointestinal Gastrointestinal: Denies bloating, constipation, cramping, diarrhea, nausea or vomiting Genitourinary Genitourinary: Reports other Details: Denies vaginal odor, vaginal bleeding, or vaginal discharge ; Denies difficulty urinating or flank pain NST FHR Rate Baby A Baseline: 140 Variability:: Moderate Accelerations:: 15 x 15 Decelerations:: None NST Reactive:: Yes FHR Category:: Category I Assessment & Plan (1) Decreased movement: (2) Pregestational diabetes mellitus, modified White class B: COMMENT: Dr. shine managing, delivery by 39 weeks discussed. diet controlled. recommend weekly nsts at 32growth us q 4 weeks. (3) Rh negative status during : COMMENT: Rhogam at 28 weeks and PRN (4) Desires (vaginal after ) trial: COMMENT: 40% ok per SM, schedule cs or IOL at 39 weeks. RLTCS scheduled for 09/24 @ 7:30a with JV (5) Supervision of high risk , antepartum: COMMENT: PRR EDD111/30/22 CICI Orta Suman (6) : QUALIFIERS: Weeks of gestation: 38 weeks Qualified Code(s): Z3A.38 - 38 weeks gestation of COMMENT: GBS negative.nl anatomy, nipt low risk, declined carrier and afp. (7) Uterus didelphys in : COMMENT: on left side. 4cm fibroid in right (8) History of delivery: COMMENT: urgent section for bpp 4/10 baby girl Tomas Orta (9) History of recurrent miscarriages: COMMENT: evaluated by RGI. on progesterone PLAN: Plan reactive NST if still breech, has rpt section scheduled for Saturday09/24/23 @ 7:30 am Charges/Coding Multi Select Codes Urinary/Genital Urinary/Genital CPT Codes: 87952-52 non-stress test Interp
== END 2023-09-20 15:10 | disposition home or self-care (01) ==
LOC: WPOUT 14:02 → WP 14:02
PROVIDERS: Visit Provider Registered Nurse
DX: O36.8130 Decreased fetal movements, third trimester, not applicable or unspecified (principal); Z3A.38 38 weeks gestation of pregnancy; O26.893 Other specified pregnancy related conditions, third trimester; O34.03 Maternal care for unspecified congenital malformation of uterus, third trimester; Q51.28 Other and unspecified doubling of uterus; O99.893 Other specified diseases and conditions complicating puerperium
CPT/HCPCS: 59025; 59050

== ENCOUNTER 2023-09-23 11:50 | Inpatient (IN) | payer OTHER, SELFPAY ==
[2023-09-23] VITALS (13 sets, daily range): BP systolic 102–126; BP diastolic 54–83; PULSE 63–88; RESP 12–17; TEMP 36–36.4; O2SAT 94–100; BMI 29.7
[2023-09-23] MEDS: Acetaminophen 500 MG Tablet 1000 MG PO ×2 (12:17→18:34)
--- NOTE | 2023-09-23 12:21 | HP.PCM.OB_ITS ---
HPI - General General Date of Admission: 09/23/23 HPI Narrative TOMAS CAMPBELL, is a 33 y/o @ 39 weeks 0 days who presents to L&D for nicolas section .She has had decreased movement all weekend and today in office her nst showed only minimal variability without accelerations. There is a known nuchal cord as was communicated last week during a BPP (also performed for decreased movement). She has pregestational DM and rh negative status. Her baby is again breech this . Maternal Data Information KAREN Calculator Estimated Delivery Date Method Current WG Current Estimate 09/30/23 LMP (Certain) 39w 0d PFSH PFSH Medical History Abnormal Pap smear of cervix Gestational diabetes Gestational diabetes Rh negative, maternal Uterus didelphys in Home Medications vitamin#30 30 mg iron-10 mg iron-folic acid 1 mg-omg3 capsule 1 cap PO DAILY 08/14/21 [History Last Taken 09/22/23 10:00 1 cap] blood sugar diagnostic (Blood Glucose Test strips) #50 ea 03/13/23 [Rx Last Taken Unknown] blood-glucose meter #1 ea 03/13/23 [Rx Last Taken Unknown] lancets #100 ea 03/13/23 [Rx Last Taken Unknown] FreeStyle Yadi 3 Sensor (blood-glucose sensor) #2 ea 04/25/23 [Rx Last Taken Unknown] Saccharomyces boulardii 250 mg capsule (Daily Probiotic (S. boulardii)) 250 mg PO BID GI 04/25/23 [History Last Taken 09/22/23 21:00] insulin degludec 100 unit/mL (3 mL) subcutaneous pen (Tresiba FlexTouch U-100 insulin) 4 unit subcut PRN GDM 09/23/23 [History Last Taken 09/23/23 09:30] Allergy/AdvReac Type Severity Reaction Status Date / Time No Known Allergies Allergy Verified 09/23/23 12:09 Family History Grandfather Sudden cardiac Myocardial infarction Mother Heart disease Surgical History H/O dilation and curettage History of delivery Status post colposcopy Vaginal septum Social History adopted: No household members: family number of children: 1 current occupational status: employed current occupation: [employer] current occupational exposures/hazards: No pets and animals: Yes pets and animals: dog(s) history of recent travel: No sexually active: Yes Smoking Status: Never smoker alcohol intake: current details: pre substance use type: does not use caffeine: Yes Type: coffee Number of servings: 1 what type of physical activity do you participate in: walking and aerobics frequency: 3-4 times per week seatbelt use: always do you feel safe at home: Yes additional social history: Suman- Suresh Patient works at the [employer] History 4 Elective abortions Hx Para 1 Spontaneous abortions 2 Hx # Term Pregnancies Ectopic pregnancies Hx # Pregnancies Multiple births # of living children 1 Past Pregnancies Del. Date Name GA/Weeks Outcome Route Bth Weight [facility] Tomas Orta 37 live - full term 6lbs 2oz F emale spinal [facility] Dr. Colby Delivery Date: 01/23/22 Last Updated by: Radha Chery Urgent section for 02/16 [facility] Visit Details Expected Delivery Route/Plan RLTCS Labor Preferences- CB/BF classes: [] labor support person: [] labor intervention preferences: [] pain management options preferred: [] cut cord/dad catch: [] : [] PP control planned: [] discussed possible routes of delivery and associated risks: [] special requests: [] Plans Covid status: discussed Flu vaccine: discussed Tdap vaccine: given Rhogam: given LARC form signed: declined movement and labor precautions reviewed. Problem list reviewed and updated with the most current plan of care details and appropriate orders placed. Relevant counseling for the gestational age provided. Continue routine care and follow up unless otherwise noted in visit notes/problem list details OB Flowsheet Initial Weight: Not Recorded Date -?-?-?-?-?-?-?-?-?-?-?-?- EGA Weight BP Urine Prot -?-?-?-?-?-?-?-?-?-?-?-?- Glucose FHR FuHt Pres Dilation -?-?-?-?-?-?-?-?-?-?-?-?- Effaced St Visit Note 02/28/23 -?-?-?-?-?-?-?-?-?-?-?-?- 9w 3d 166 lb 2 oz 114/76 -?-?-?-?-?-?-?-?-?-?-?-?- 165 -?-?-?-?-?-?-?-?-?-?-?-?- KW-CRL = dates. CRL~ KW-CRL = dates. KW-CRL = dates. OK for KW-CRL=dates. In left horn. SM scanned. OK for TOLAC 03/28/23 -?-?-?-?-?-?-?-?-?-?-?-?- 13w 3d 166 lb 6 oz 112/69 Nega tive -?-?-?-?-?-?-?-?-?-?-?-?- Negative 159 -?-?-?-?-?-?-?-?-?-?-?-?- JV- pt has pre-G estational DM and will see Dr. Shine. She has the monitor on h er arm to see glucose continuously. declines to see the rail transportation tabeler because she did not get much help from them last . 04/26/23 -?-?-?-?-?-?-?-?-?-?-?-?- 17w 4d 169 lb 110/73 Negative -?-?-?-?-?-?-?-?-?-?-?-?- Negative 150 -?-?-?-?-?-?-?-?-?-?-?-?- Lc- no vb/crampi ng. Fg under 90,meals under 120 has CGM. occ flutters. Lc- no vb/cramping. Fg under 90,meals under 120 has CGM. occ flutters. discussed and declines afp, anatomy scheduled 05/21/23 -?-?-?-?-?-?-?-?-?-?-?-?- 21w 1d 171 lb 94/60 Negative -?-?-?-?-?-?-?-?-?-?-?-?- Negative 145 21 -?-?-?-?-?-?-?-?-?-?-?-?- KW-+FM, no vb/ct x. BS controlled. no concerns 06/20/23 -?-?-?-?-?-?-?-?-?-?-?-?- 25w 3d 174 lb 4 oz 105/65 -?-?-?-?-?-?-?-?-?-?-?-?- 145 25 -?-?-?-?-?-?-?-?-?-?-?-?- SM- discussed di abetes and testing BS controlled get rhogam next time 07/09/23 -?-?-?-?-?-?-?-?-?-?-?-?- 28w 1d 176 lb 8 oz 123/84 Nega tive -?-?-?-?-?-?-?-?-?-?-?-?- Negative 155 29 -?-?-?-?-?-?-?-?-?-?-?-?- SM- no vb lof go od fm no regular ctx tdap and rhogam given 07/23/23 -?-?-?-?-?-?-?-?-?-?-?-?- 30w 1d 180 lb 8 oz 91/61 Nega tive -?-?-?-?-?-?-?-?-?-?-?-?- Negative 160 31 -?-?-?-?-?-?-?-?-?-?-?-?- SM- no vb lof go od fm no reuglar ctx BS controlled 08/08/23 -?-?-?-?-?-?-?-?-?-?-?-?- 32w 3d 182 lb 4 oz 120/80 Nega tive -?-?-?-?-?-?-?-?-?-?-?-?- Negative 150 -?-?-?-?-?-?-?-?-?-?-?-?- JV- NST reactive . glucose levels still stable. Growth scan yesterday was 39th% with Ernestina 17. pt wants to fly to [place] (8 hr flight) we talked a lot about the option 08/21/23 -?-?-?-?-?-?-?-?-?-?--?-?- 34w 2d 182 lb 6 oz 110/78 Nega tive -?-?-?-?-?-?-?-?-?-?-?-?- Negative 140 -?-?-?-?-?-?-?-?-?-?-?-?- JV- nst reactive . glucose levels are normal. 08/29/23 -?-?-?-?-?-?-?-?-?-?-?-?- 35w 3d 182 lb 4 oz 112/75 Nega tive -?-?-?-?-?-?-?-?-?-?-?-?- Negative 140 -?-?-?-?-?--?-?-?-?-?-?-?- SM- no vb lof go od fm n oregular ctx BG wnl 09/04/23 -?-?-?-?-?-?-?-?-?-?-?-?- 36w 2d 182 lb 2 oz 119/75 Nega tive -?-?-?-?-?-?-?-?-?-?-?-?- Negative 150 39 Breech 0 -?-?-?-?-?-?-?-?-?-?-?-?- JV- NST reactive . glucose levels normal. GBS today JV- NST reactive. glucose le vels normal. GBS today ultrasound reviewed. has a 7 cm fundal f ibroid that is skewing fundal heights. if baby flips and goes into labor wants to . 09/11/23 -?-?-?-?-?-?-?-?-?-?-?-?- 37w 2d 184 lb 4 oz 113/78 Nega tive -?-?-?-?-?-?-?-?-?-?-?-?- Negative 160 Breech -?-?-?-?-?-?-?-?-?-?-?-?- JV- still breech today. wants to come in prior to section to be scanned one last time. has routine exam next visit. glucose levels are normal. (not on meds but doing nsts. nst reactive) she is very hopeful to . 09/18/23 -?-?-?-?-?-?-?-?-?-?--?-?- 38w 2d 186 lb 4 oz 136/81 Nega tive -?-?-?-?-?-?-?-?-?-?-?-?- Negative 150 Breech -?-?-?-?-?-?-?-?-?-?-?-?- JV- 3 small vari able (carrot looking) decelerations) and intermittent contractions. sending to l&D for BPP and prolonged monitoring. 09/23/23 -?-?-?-?-?-?-?-?-?-?-?-?- 39w 0d 186 lb 4 oz 118/76 Nega tive -?-?-?-?-?-?-?-?-?-?-?-?- Negative 140 Breech -?-?-?-?-?-?-?-?-?-?-?-?- JV- pt has decre ased movement all weekend but has a doppler at home so did not come in. BPP end of week was 06/18 but today there is minimal to no variability on the NST. sending down to L&D for nicolas repeat section. ROS Constitutional Constitutional: Denies change in weight, fatigue, fever(s), headache(s), poor appetite or weakness Eyes Eyes: Denies blurry vision, change in vision, seeing flashes or spots in vision ENT HEENT: Denies dizziness, headache(s), loss taste/smell or sore throat Cardiovascular Cardiovascular: Denies chest pain, dizziness, dyspnea, irregular heart rhythm, leg edema, palpitations, rapid heart rate or vomiting Respiratory/Chest Respiratory/Chest: Denies chest tightness, cough, dyspnea or breast pain Gastrointestinal Gastrointestinal: Denies abdominal pain, anorexia, constipation, cramping, diarrhea, hemorrhoids, vomiting or weight changes Genitourinary Genitourinary: Denies dysuria, flank pain, genital lesions, genital pain, urinary frequency or urinary urgency Musculoskeletal Musculoskeletal: Denies back pain, difficulty walking, joint pain, limited range of motion, muscle cramps or numbness Integumentary Integumentary: Denies lesions or unusual bruising Neurologic Neurologic: Denies abnormal movements, abnormal speech, dizziness, numbness, seizure-like activity or syncope Psychiatric Psychiatric: Denies anxiety, behavioral changes, change in appetite, change in libido, cognitive impairment, confusion, depression, difficulty concentrating, hallucinations or suicidal thoughts Endocrine Endocrinology: Denies excessive sweating, polydipsia or polyuria Hematologic/Lymphatic Hematologic/Lymphatic: Denies easy bleeding, easy bruising or lymphadenopathy Allergic/Immunologic Allergic/Immunologic: Denies itchy eyes, lip swelling, seasonal rhinorrhea, rhinitis, throat swelling, tongue swelling, eczemia, wheezing or asthma Vital Signs Vital Signs Vital Signs: Weight Weight: 184 lb 8.43 oz Body Mass Index (BMI) 29.7 Physical Exam Const alert, oriented x3, no apparent distress and healthy appearing General Appearance: cooperative; Negative for anxious HEENT normocephalic Face and Sinus: normal facial exam Eyes EOMs intact bilaterally and no scleral icterus General Eye: normal appearance of both eyes Neck full ROM and supple Lymph Lymphatic: no lymphadenopathy noted Chest Chest: abnormal inspection of the chest Resp normal respiratory effort Effort and Inspection: able to speak in complete sentences Cardio regular rate GI soft to palpation and non-tender Inspection: gravid Palpation: soft; Negative for tender Back/Spine no CVA tenderness Extremity normal to inspection, full ROM and no clubbing, cyanosis or edema General Extremity: Negative for calf tenderness or edema Skin Lesions: no lesions Rashes: no rashes Psych mental status grossly normal Labs Labs Labs: Blood Type B NEGATIVE Antibody Screen NEGATIVE Hct 37.3 % (37-47) Hgb 12.3 g/dL (12.0-15.0) Pap Smear Negative Obstetrics Ultrasound Syphilis Total Ab Non-reactive Rubella IgG Antibody Reactive (Nonreactive) Hep Bs Antigen Non-Reactive (Nonreactive) Hepatitis C Antibody Non-Reactive (Nonreactive) Chlamydia DNA ([facility]) Negative (Negative) N.gonorrhoeae DNA ([facility]) Negative (Negative) HIV 1&2 Antibody Non-Reactive (Nonreactive) Glucose 1 Hr 50 gm 140 mg/dL (70-140) Gest Glucose Tolerance MG/DL Assessment & Plan (1) Decreased movement: (2) Pregestational diabetes mellitus, modified White class B: COMMENT: Dr. shine managing, delivery by 39 weeks discussed. diet controlled. recommend weekly nsts at 32growth us q 4 weeks. (3) Rh negative status during : COMMENT: Rhogam at 28 weeks and PRN (4) Supervision of high risk , antepartum: COMMENT: PRR EDD1/ PC You Suman (5) : QUALIFIERS: Weeks of gestation: 39 weeks Qualified Code(s): Z3A.39 - 39 weeks gestation of COMMENT: GBS negative.nl anatomy, nipt low risk, declined carrier and afp. (6) Uterus didelphys in : COMMENT: on left side. 4cm fibroid in right (7) History of delivery: COMMENT: urgent section for bpp 4/10 baby girl Tomas Orta (8) History of recurrent miscarriages: COMMENT: evaluated by RGI. on progesterone PLAN: Plan plan is for nicolas section for persistent decreased movement and minimal variability on NST in office today without accelerations. (category 2) 2 grams ancef now
[2023-09-23] MEDS: Lactated Ringers 1,000 ML 150 ML IV (12:25)
--- NOTE | 2023-09-23 12:26 | DCINST_ITS ---
Discharge Instructions Diet Discharge Diet: No restrictions Activity Discharge Activity: May Not Drive (for 2 weeks or while taking narcotic pain medications.), May Shower and May Take a Tub Bath (in 7 days.) May resume sexual activity in: 4-6 weeks Weight Bearing Status: Full weight bearing Lifting Restrictions: 20 pounds Dressing / Incision Call your doctor if your incision/area has: Continuous Slow Oozing, Sudden Increased Bleeding, Increased Pain/ Swelling, Increased Redness and Foul Smelling Discharge Call your doctor if you observe: Fever of 101 or Higher and Using more than 1 pad per hour Suture Line Care: Avoid Pulling/Pushing and Avoid Pinching/Bending Cleanse incision/area with: Soap & Water and Keep Dressing Clean & Dry Follow Up Care Please Follow Up With: Luba Colby DO When: Call [phone] to make an appointment for an incision check in 1-2 weeks. Test Results: Test results from this visit will be discussed in further detail at your follow- up appointment, if applicable. Discharge Plan Admission Admit Date/Time: 09/23/23 11:50 Attending Provider: Luba Colby Primary Care Provider: Angelica Aly Discharge Orders/Prescriptions Prescriptions: No Action PNV #[id number] 30 mg iron-10 mg iron-1 mg capsule 1 cap PO DAILY Saccharomyces boulardii [Daily Probiotic (S. boulardii)] 250 mg capsule 250 mg PO BID (DME) FreeStyle Yadi 3 Sensor Device See Rx Instructions .Route Qty: 2 9RF Rx Instructions: As directed insulin degludec [Tresiba FlexTouch U-100] 100 unit/mL (3 mL) insulin pen 4 unit subcut PRN (DME) blood-glucose meter Misc See Rx Instructions .MEDSUPPLY Qty: 1 0RF Rx Instructions: As directed- Test fasting and 2 hours after meals (DME) lancets Misc See Rx Instructions .MEDSUPPLY Qty: 100 12RF Rx Instructions: As directed (DME) Blood Glucose Test Strip See Rx Instructions .Route Qty: 50 12RF Rx Instructions: As directed- fasting and 2 hr post meals Referrals / Follow Up: Angelica Aly MD [Primary Care Provider] -
[2023-09-23 12:44] LABS: Absolute Lymphocyte Count 1.97 X10^3/uL (0.83-4.51); Basophil# 0.02 X10^3/uL; Basophil% 0.2 % (0-1); Eosinophil# 0.03 X10^3/uL; Eosinophils% 0.3 % (0-5); Hemoglobin 12.7 g/dL (12.0-15.0); Lymphocyte # 1.97 X10^3/ul (0.83-4.51); Lymphocyte % 22.9 % (19-41); Mean Corp Hgb Conc 32.6 g/dL (32-36); Mean Corpuscular Hgb 29.2 pg (27.0-32.0); Mean Corpuscular Volume 89.7 fL (81-99); Mean Platelet Vol. 12.2 fl (6.2-12.0); Monocyte# 0.52 X10^3/uL; Monocyte% 6.1 % (0-10); NRBC Flagged by Analyzer 0 % (0-5); Neutrophil # 6.02 X10^3/uL (2.7-7.7); Neutrophil % 70.2 % (47-70); Platelet Count 179 K/mm3 (150-450); RBC Distribution Width CV 13.2 % (11.6-14.6); RBC Distribution Width SD 43.3 fl (35.1-43.9); Red Blood Count 4.35 M/mm3 (4.2-5.4); White Blood Count 8.6 K/mm3 (4.4-11.0)
[2023-09-23] MEDS: Sodium Citrate/Citric Acid 30 ML UDC PO (12:49)
[2023-09-23 12:51] LABS: Bedside Glucose 71 mg/dL (74-106)
[2023-09-23] MEDS: Cefazolin 2 GM in 0.9% Normal Saline (100mL Bag) 100 ML IV (12:52)
[2023-09-23 13:38] LABS: Syphilis Antibodies Non-reactive
[2023-09-23] MEDS: Oxytocin 15 Units/NS 250ml 15 UNITS/250 ML IV.SOLN 83 UNITS IV (14:00)
[2023-09-23] MEDS: Ketorolac 30 MG/ML Syringe IV ×2 (14:14→19:55)
[2023-09-23] MEDS: 0.9% Saline Lock 10 ML Syringe IV (14:16)
--- NOTE | 2023-09-23 14:43 | EX.PCM.OBRPT ---
Assessment & Plan (1) Decreased movement: (2) Pregestational diabetes mellitus, modified White class B: COMMENT: Dr. darden managing, delivery by 39 weeks discussed. diet controlled. recommend weekly nsts at 32growth us q 4 weeks. (3) Rh negative status during : COMMENT: Rhogam at 28 weeks and PRN (4) Desires (vaginal after ) trial: COMMENT: 40% ok per SM, schedule cs or IOL at 39 weeks. RLTCS scheduled for 09/24 @ 7:30a with JV (5) Supervision of high risk , antepartum: COMMENT: PRR EDD111/30/22 PC You Suman (6) : QUALIFIERS: Weeks of gestation: 39 weeks Qualified Code(s): Z3A.39 - 39 weeks gestation of COMMENT: GBS negative.nl anatomy, nipt low risk, declined carrier and afp. (7) Uterus didelphys in : COMMENT: on left side. 4cm fibroid in right (8) History of delivery: COMMENT: urgent section for bpp 10 baby girl Silva Orta (9) History of recurrent miscarriages: COMMENT: evaluated by RGI. on progesterone Maternal Data Information KAREN Calculator Estimated Delivery Date Method Current WG Current Estimate 09/30/23 LMP (Certain) 39w 0d Final KAREN: 09/30/23 Final KAREN Source: LMP Gestational age: 39 weeks 0 days Doctor Who Attended Delivery: Carolina Burr Details Operative Information Date of Procedure: 09/23/23 Pre-Operative Diagnosis: 33 y/o @ 39 weeks 0 days, persistent decreased movement, non-reactive NST, pre-gestational diabetes, breech, prior section, didelphys uterus Post-Operative Diagnosis: 33 y/o @ 39 weeks 0 days, persistent decreased movement, non-reactive NST, pre-gestational diabetes, breech, prior section, didelphys uterus Classification: ELILS Procedure Type: low transverse 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 She was prepped and draped in the normal sterile fashion and was placed in a dorsal supine position with a leftward tilt. Pfannenstiel skin incision was made with a scalpel and carried through to the underlying layers. The fascia was nicked in the midline and extended laterally using Lombardi scissors. The anterior aspect of the fascia was grasped with Glendy clamps and the underlying rectus muscles dissected off using the Metzenbaum scissors. The rectus muscles were in the midline. Peritoneum was entered sharply. The uterus was identified and a bladder blade was inserted into the abdomen. Bladder flap was created off the uterus using Metzenbaum scissors. A transverse incision was made with a scalpel and extended laterally manually. The 's feet were first to present and were gently grasped and guided out of the uterine incision. The legs and torso followed. The anterior shoulder was carefully swept across the chest. The was rotated to the opposite side and opposite arm was swept down and over the chest. The head was delivered with the help of my sales support assistant using fundal pressure and also a finger in the mouth to flex the head. Nuchal cord x 5 was reduced. The mouth and nares were bulb suctioned. After a 30 second delay the cord was clamped and cut. The end was handed off to the awaiting supervisor screen making for routine assessment. Placenta was delivered manually without difficulty. There was a small scar tissue band running anterior to posterior on the lower uterine segment at the uterocervical junction. This was cauterized and cut. The uterus was exteriorized and cleared of all clots and debris. Incision was closed with an 0 Vicryl suture in a running locked fashion. Second layer of 1-0 monocryl suture was used in imbricating manner to create excellent closure and hemostasis. The uterus was returned to the abdomen. The gutters were cleared of all clots and debris. The peritoneum was closed in a pursestring pattern using a 3-0 Vicryl suture. This muscle was reapproximated with a 3-0 Vicryl. The fascia was closed with a stratafix suture. Subcutaneous tissue layer was irrigated then closed using a plain gut suture. The skin was closed with a 4-0 Monocryl subcuticular stitch. The skin was also sealed with surgical glue. The patient tolerated the procedure well sponge lap and needle counts were correct at each tissue closure plane and the patient is now being brought to the recovery room in stable condition Presentation: Positive for Mason Breech Amniotic Membrane Rupture Type: Artificial Amniotic Fluid Description: Clear Placental Delivery Description: Manual Removal Placenta Disposition: [facility] Cord Vessel Description: 3 Vessels Cord Entanglement: - (around neck x 5, the last 2 were tight) Nuchal Cord Compression: Without compression A Gender: Male (1 minute): 8 (5 minute): 9 Delayed Cord Clamping: No Complications Risks of Surgery Discussed w/Patient: Bleeding, Anesthesia Risks, Infection, Need for Future C-Sections and Injury to surrounding structure(s) including bowel and bladder Multi Select Codes Urinary/Genital Urinary/Genital CPT Codes: 10201 Delivery [facility]
--- NOTE | 2023-09-23 15:19 | NURSING ---
patient to come to unit from office for ELLIS c/s
[2023-09-23] MEDS: Lactated Ringers 1,000 ML 100 ML IV (17:01)
--- NOTE | 2023-09-23 17:55 | NURSING ---
patient offered ambulation. patient declined and states her legs are still tingly.
[2023-09-23 18:22] LABS: Bedside Glucose 72 mg/dL (74-106)
--- NOTE | 2023-09-23 18:54 | NURSING ---
patient stood at bedside and marched in place. patient declined going to the bathroom and would like her catheter to stay in for now d/t pain and weak legs when ambulating.
[2023-09-24 00:25] VITALS: BP 101/59; PULSE 63; RESP 16; TEMP 36.3; O2SAT 96
[2023-09-24] MEDS: Acetaminophen 500 MG Tablet 1000 MG PO ×4 (00:26→18:37)
[2023-09-24] MEDS: 0.9% Saline Lock 10 ML Syringe IV ×2 (01:48→07:56)
[2023-09-24] MEDS: Ketorolac 30 MG/ML Syringe IV ×2 (01:48→07:56)
[2023-09-24 04:45] VITALS: BP 102/66; PULSE 63; RESP 18; TEMP 36.6; O2SAT 97
[2023-09-24 06:01] LABS: Hematocrit 32.2 % (37-47); Hemoglobin 10.7 g/dL (12.0-15.0); Mean Corp Hgb Conc 33.2 g/dL (32-36); Mean Corpuscular Hgb 30.5 pg (27.0-32.0); Mean Corpuscular Volume 91.7 fL (81-99); Mean Platelet Vol. 11.9 fl (6.2-12.0); Platelet Count 165 K/mm3 (150-450); RBC Distribution Width CV 13.2 % (11.6-14.6); RBC Distribution Width SD 42.6 fl (35.1-43.9); Red Blood Count 3.51 M/mm3 (4.2-5.4)
[2023-09-24 06:10] LABS: Bedside Glucose 107 mg/dL (74-106)
[2023-09-24 07:49] VITALS: BP 105/61; PULSE 76; RESP 16; TEMP 37; O2SAT 97
--- NOTE | 2023-09-24 10:18 | PN.OBGYN_ITS ---
Subjective Subjective Patient is laying in bed comfortably without complaints. She states that she slept on an off during the night. Lochia is mild and pain is minimal. Objective Data Objective Data Vital Signs: Vital Signs Temp Pulse Resp BP Pulse Ox O2 Del Method 98.6 F 76 16 105/61 97 Room Air 09/24/23 07:49 09/24/23 07:49 09/24/23 07:49 09/24/23 07:49 09/24/23 07:49 09/24/23 07:49 Oxygen Delivery Method Room Air Weight: 184 lb 8.43 oz Body Mass Index (BMI) 29.7 Intake & Output: Intake and Output for Last 24 Hours 09/22/23 09/23/23 09/24/23 23:59 23:59 23:59 Intake Total 960 / 960 Output Total 1550 / 1550 1400 / 1400 Balance -590 / -590 -1400 / -1400 Lab / Micro Data 09/24/23 05:50 Labs: Laboratory Results - last 24 hr 09/23/23 12:25: WBC 8.6, RBC 4.35, Hgb 12.7, Hct 39.0, MCV 89.7, MCH 29.2, MCHC 32.6, RDW Std Deviation 43.3, RDW Coeff of Lindsey 13.2, Plt Count 179, MPV 12.2 H, Immature Gran % (Auto) 0.300, Neut % (Auto) 70.2 H, Lymph % (Auto) 22.9, [place] % (Auto) 6.1, Eos % (Auto) 0.3, Baso % (Auto) 0.2, Absolute Neuts (auto) 6.0, Absolute Lymphs (auto) 1.97, Nucleated RBC % 0, Syphilis Total Ab Non-reactive, Blood Type B NEGATIVE, Antibody Screen NEGATIVE 09/23/23 12:26: POC Glucose 71 L 09/23/23 14:22: POC Glucose 72 L 09/23/23 15:58: Screen NEGATIVE, Baby's Blood Type A POSITIVE, Baby's DESTINY NEGATIVE 09/24/23 05:41: POC Glucose 107 H 09/24/23 05:50: WBC 11.0, RBC 3.51 L, Hgb 10.7 L, Hct 32.2 L, MCV 91.7, MCH 30.5, MCHC 33.2, RDW Std Deviation 42.6, RDW Coeff of Lindsey 13.2, Plt Count 165, MPV 11.9 ROS Constitutional Constitutional: Reports systems reviewed and no addt'l complaints, except as documented Cardiovascular Cardiovascular: Denies chest pain, dizziness, dyspnea or irregular heart rhythm Respiratory/Chest Respiratory/Chest: Denies cough, pain on inspiration or shortness of breath at rest Gastrointestinal Gastrointestinal: Denies abdominal pain, nausea or vomiting Genitourinary Genitourinary: Denies burning urination Musculoskeletal Musculoskeletal: Denies muscle cramps, muscle spasms or muscle weakness Neurologic Neurologic: Denies confusion, dizziness, headache(s) or lack of coordination Psychiatric Psychiatric: Denies anxiety, behavioral changes or depression Physical Exam HEENT normocephalic Resp normal respiratory effort and normal air movement GI soft to palpation, non-tender and non-distended Rectal Exam: other Other Details: Incision is clean, dry, and intact no CVA tenderness Extremity normal to inspection General Extremity: edema bilateral (trace ) Assessment & Plan (1) Status post section: PLAN: s/p LTCS PPD #1 1. routine post care 2. rh neg- rhogam ordered 4. rubella immune 5. plan for more ambulation today and possible dc to home later today or more likely tomorrow am.
[2023-09-24] MEDS: Senna/Docusate Sodium 1 Tablet PO (12:28)
[2023-09-24 12:36] VITALS: BP 96/62; PULSE 76; RESP 16; TEMP 36.8
[2023-09-24] MEDS: Ibuprofen 600 MG Tablet PO ×2 (14:18→20:11)
[2023-09-24 16:35] VITALS: BP 100/61; PULSE 88; RESP 14; TEMP 36.8; O2SAT 97
[2023-09-24] MEDS: oxyCODONE 5 MG Tablet PO (18:41)
[2023-09-24 20:13] VITALS: BP 110/66; PULSE 84; RESP 16; TEMP 37.1; O2SAT 97
[2023-09-25] MEDS: Acetaminophen 500 MG Tablet 1000 MG PO ×2 (00:43→06:34)
[2023-09-25] MEDS: Ibuprofen 600 MG Tablet PO ×2 (02:05→08:24)
[2023-09-25 02:08] VITALS: BP 113/69; PULSE 77; RESP 16; TEMP 36.2; O2SAT 98
[2023-09-25 07:00] LABS: Bedside Glucose 75 mg/dL (74-106)
--- NOTE | 2023-09-25 07:47 | PCM.PN.OB ---
Subjective Subjective Patient doing well without complaints. Tolerating PO. Ambulating and voiding without difficulty. Feeding well. Denies chest pain, shortness of breath, calf pain/swelling, fevers, chills, lightheadedness. Objective Data Objective Data Vital Signs: Vital Signs Temp Pulse Resp BP Pulse Ox O2 Del Method 97.2 F L 77 16 113/69 98 Room Air 09/25/23 02:08 09/25/23 02:08 09/25/23 02:08 09/25/23 02:08 09/25/23 02:08 09/25/23 02:08 Oxygen Delivery Method Room Air Weight: 184 lb 8.43 oz Body Mass Index (BMI) 29.7 Intake & Output: Intake and Output for Last 24 Hours 09/23/23 09/24/23 09/25/23 23:59 23:59 23:59 Intake Total 960 / 960 Output Total 1550 / 1550 2099 / 2100 Balance -590 / -590 -2100 / -2100 Lab / Micro Data 09/24/23 05:50 Labs: Laboratory Results - last 24 hr 09/25/23 06:41: POC Glucose 75 Physical Exam Const alert and oriented x3 HEENT normocephalic Eyes PERRL Neck full ROM Resp normal respiratory effort GI soft to palpation GI Narrative: FF below U. Dressing dry and intact Palpation: tender other (appropriately) Assessment & Plan (1) Status post section: (2) Uterus didelphys in : QUALIFIERS: Trimester: unspecified trimester Qualified Code(s): O34.599 - Maternal care for other abnormalities of gravid uterus, unspecified trimester; Q51.28 - Other and unspecified doubling of uterus COMMENT: on left side. 4cm fibroid in right (3) Pregestational diabetes mellitus, modified White class B: COMMENT: Dr. shine managing, (4) Rh negative, maternal: QUALIFIERS: Trimester: third trimester Qualified Code(s): O26.893 - Other specified related conditions, third trimester; Z67.91 - Unspecified blood type, Rh negative PLAN: Plan s/p LTCS PPD # 2 1. routine post care 2. breast feeding- support given 3. rh negative 4. rubella immune 5. will follow with Dr Shine, glucose stable 6. home today
[2023-09-25] MEDS: Senna/Docusate Sodium 1 Tablet PO (08:24)
--- NOTE | 2023-09-25 09:37 | CASEMGMT ---
Social Work Assessment Labor and Delivery Unit Patient Address: [address] [place] [address] [address] [place] [address] Phone number: [phone] Date of Referral: 09/23/23 Time of Referral:?1810 Referred By: Luba Colby Date of Intervention: ??09/25/23 Time of Intervention:? 0900 Reason for Referral:? anxiety- patient tearful and states that she is overwhelmed Sw completed chart review and acknowledges social work consult due to maternal anxiousness following delivery of baby. Sw presented to bedside, introduced self to mother of baby (ACE- Carol Ascencio) and father of baby (EPHRAIM- Suman). Sw explained reason for sw involvement and completed psychosocial assessment. History obtained from: medical records, MOB and [facility] Household composition: Currently residing in the family home is EPHRAIM BELLO, their older daughter, You (20 months old) and now baby boy. No one else resides with family at this time. Parents state that their housing is safe and secure, no concerns. Patient's parent/guardian status:? ?ACE states that she and EPHRAIM have been together for 5 years. ACE states that EPHRAIM was the wedding officiant at her brother's wedding, and that is how they met each other and started dating three months after that. No concerns at this time regarding domestic violence or intimate partner violence. Medical History: ACE is 33 year old female who is 4, para 1- now 2 following delivery of . ACE received routine care with [place] during . ACE delivered baby via for decreased movement. Baby was born with nuchal cord x5. Baby boy, named David, was born weighing 7lb 9oz and his apgars were 8 and 9 at one and five minutes of life respectfully. Baby will be followed by Dr. Barnes for pediatrics. Educational Status:? Both parents graduated high school- no concerns with reading, writing or comprehension noted. ACE obtained college education. Financial Status: Both parents are gainfully employed outside of the home. ACE works for a [employer] and is able to take 6 months off of work. 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 Infant Supplies: Parents report they have obtained all necessary baby items, including: safe sleep space, clothes, diapers, wipes, car seat and breast pump. Childcare/Caregiver(s):?When both parents are working both sets of grandparents help assist with childcare. Transportation:?? Both parents have their drivers license and reliable means of transportation. No transportation barriers at this time. Programs/Agencies Involved: Parents deny any linkage to community resources at this time. ??? Children Services/Legal Issues:?No history of children services involvement, no issues or concerns warranting a referral to be made at this time. ?? Behavioral Health Issues: ??Mental Health History: MOB states that she has never been diagnosed with anxiety or depression. MOB acknowledges that she was overwhelmed and anxious prior to and following . MOB states that she gets nervous prior to surgery. MOB states that she does not require prescription psychotropic medications. MOB is aware of signs and symptoms of baby blues and depression. FOB denies mental health diagnoses.? Substance Use History:??MOB denies substance use during and prior to . Family History:?MOB denies family history of addiction and substance use. ??? Drug Screens: ?No drug screens observed in chart review. ? Family/Social Stressors:? Parents deny any stressors at this time. Support Systems: Parents state that both sets of grandparents are extremely supportive and helpful. Depression/Shaken Baby/Safe Sleeping:? Sw educated parents on signs and symptoms of baby blues and depression/ anxiety. Parents expressed understanding. Sw educated parents on shaken baby prevention and ABCs of safe sleep. Parents expressed understanding. ASSESSMENT:? MOB and baby admitted following labor and delivery. MOB appeared anxious and overwhelmed prior to and following delivery of baby. MOB states that she is doing well now, and denies any mental health issues or concerns at this time. MOB and FOB have obtained all necessary baby items and have natural supports in place. MOB and FOB talkative with sw during psychosocial assessment and receptive to support provided. PLAN: MOB and baby to be discharged when medically ready. ? ?No other services requested or indicated. Jodi Cohen, SENIOR DIRECTOR FINANCE, BR[employer]GE [employer]STRUCTION INSPECTOR
[2023-09-25 09:45] VITALS: BP 103/67; PULSE 85; RESP 16; TEMP 36.4
== END 2023-09-25 12:00 | disposition home or self-care (01) | DRG 786 ==
PROVIDERS: Admitting Provider Obstetrics & Gynecology; PCP Internal Medicine; Visit Provider Obstetrics & Gynecology
DX: O36.8130 Decreased fetal movements, third trimester, not applicable or unspecified (principal); O24.32 Unspecified pre-existing diabetes mellitus in childbirth; E11.9 Type 2 diabetes mellitus without complications; O34.219 Maternal care for unspecified type scar from previous cesarean delivery; O69.1XX0 Labor and delivery complicated by cord around neck, with compression, not applicable or unspecified; O34.03 Maternal care for unspecified congenital malformation of uterus, third trimester; Q51.28 Other and unspecified doubling of uterus; O32.1XX0 Maternal care for breech presentation, not applicable or unspecified; Z37.0 Single live birth; Z3A.39 39 weeks gestation of pregnancy
CPT/HCPCS: 59025; 59050; 82962; 85025; 85027; 85461; 86780; 86850; 86900; 86901; 99221; J7120; A4216; G0378; J2405; J2790

== ENCOUNTER → 2024-08-03 | Outpatient (CLI) | payer OTHER, SELFPAY ==
[2024-08-12 08:48] LABS: HPV Reflexed? NOT INDICATED
== END | disposition home or self-care (01) ==
LOC: LABSPEC 16:13
PROVIDERS: PCP Internal Medicine; Referring Provider Obstetrics & Gynecology; Visit Provider Obstetrics & Gynecology
DX: Z12.4 Encounter for screening for malignant neoplasm of cervix (principal)
CPT/HCPCS: 88175; G0145

== ENCOUNTER → 2024-09-08 | Outpatient (CLI) | payer OTHER, SELFPAY ==
--- NOTE | 2024-09-08 13:24 | MRI_ITS ---
EXAM: MR PELVIS WITHOUT AND WITH INTRAVENOUS CONTRAST CLINICAL INDICATION: uterine fibroid TECHNIQUE: Multiplanar and multisequence MR images of the pelvis without and with intravenous contrast. CONTRAST: IV 13cc clariscan COMPARISON: May 02, 2021 FINDINGS: INTRAPERITONEAL SPACE: Small amount of free fluid in the pelvis. BLADDER: Decompressed base of the bladder. OVARIES: Ovaries are unremarkable bilaterally. No adnexal masses. UTERUS/CERVIX: Septate uterus with rounded subserosal fibroid measuring 6.9 x 5.9 cm, specifically located between the 2 horns. Endometrial stripe is normal in thickness and appearance. BONES/JOINTS: Unremarkable. No suspicious lytic or blastic abnormality. SOFT TISSUES: Unremarkable. No pelvic wall hernia. LYMPH NODES: Unremarkable. No enlarged lymph nodes. MRI/Pelvis W/WO Contrast IMPRESSION: 1. Septate uterus with rounded subserosal fibroid measuring 6.9 x 5.9 cm, specifically located between the 2 horns. 2. Small amount of free fluid in the pelvis is nonspecific. Electronically Signed: Jignesh Marcos MD at 23:12 EDT ,
== END | disposition home or self-care (01) ==
LOC: MRI 13:16
PROVIDERS: PCP Internal Medicine; Referring Provider Obstetrics & Gynecology; Visit Provider Obstetrics & Gynecology
DX: D25.9 Leiomyoma of uterus, unspecified (principal); Q51.28 Other and unspecified doubling of uterus
CPT/HCPCS: 72197; A9575

== ENCOUNTER 2025-10-26 15:30 | Outpatient (RCR) | payer OTHER, SELFPAY ==
--- NOTE | 2025-06-24 13:14 | HP.PTEVAL_ITS ---
Patient's Visit Information Visit Information Visit Information: TOMAS CAMPBELL is a 35 year old F referred to Physical Therapy by Dr. Tyrone Freeman, DO with a diagnosis of STRAIN OF MUSCLE/TENDON RTC OF RIGHT SHOULDER. Date of Evaluation: 06/24/25 Physical Therapist: Shravan Carias, PT, Cert MDT, OCS Visit Plan Frequency: 2x /Week Duration: Indefinite Plan: S/P RTC REPAIR SUPRASPINATUS SLING 6 WEEKS RTD 4 WEEKS SEE GUIDELINES FOR RTC REPAIR PT INTERVENTIONS MANUAL THERAPY PROM PHASE 1 6 WEELS ,AAROM/ISOMETRICS PHASE 2 4-6 WEEKS THEN STRENGTHENING RTC/SCPUALR ,POSTURAL EX'S, CP Subjective Subjective: This 35 y/o female presents to physical therapy with right RTC repair supraspinatus on June 11 DR Freeman at [facility] . Patient d/c DOS with sling . Seen today doing good. Patient has had ~ 2 years ,tried PT 6 months ,cortisone and PRP . Patient MRI PT with interstitial substance tear. Patient was not getting better thus opt with surgery. Patient was playing tennis and had bone spur. Patient has pain in shoulder at night. Patient taking anti-inflammatory PRN. Denies paresthesia/tingling, RTD to 4 weeks ,work on PROM and keep sling on. Patient has limitations with functional activities ADLS /housework tasks. Patient condition affects QOL and function /ADLS.Goals to return to prior level of activity and tennis. 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 Pain Right Shoulder: Pain Intensity (Out of 10): 3 Pain Intensity Range: 8 Objective Objective: POSTURE: mild forward posture ,rounded shoulders PALAPTION: tender UT NEURO: denies paresthesia/tingling PROM: shoulder flexion 140 degrees ,150 abduction in scapular plane ,ER 90 degrees AROM: elbow /wrist WFL MMT: NT 0 PEAK FORCE Balance/Special Test Scores Quick DASH Score: 75.0000 Goals Goal 1:: Patient to be I with HEP for shoulder RTC repair Goal Time Frame: 8-12 Weeks Goal 2:: Patient to improve AROM shoulder flexion/abduction by 150 degrees to improve ADL's and housework Goal Time Frame: 8-12 Weeks Goal 3:: Patient to improve peak force RTC and deltoid by 10-15# of strength for ADL's Goal Time Frame: 8-12 Weeks Goal 4:: Patient to improve shoulder oswestry score by 5-8 points to improve QOL Goal Time Frame: 8-12 Weeks Goal 5:: Patient to return to prior level of function 75% and no pain Goal Time Frame: 8-12 Weeks Rehabilitation Potential Physical Therapy Diagnosis: Patient s/p RTC repair supraspinatus June 11 with pain ,decrease ROM ,weakness RTC impairs ADL's and house work tasks and return to tennis thus benefit from skilled PT Rehabilitation Potential: Good Anticipated Interventions Patient/Client Instruction: Educate patient on: Condition and Plan of Care For the Purpose of:: To decrease pain, To increase ROM, To improve muscle performance and motor function, To improve ability to perform ADL's, To increase tolerance to activity/condition/position, To improve ability of physical actions for home/community/work/leisure, To improve health of tissue, To decrease soft tissue restriction, To increase flexibility/ROM, To reduce risk of recurrence, To prevent re-injury and To improve tolerance to ADL's Therapeutic Exercise to Include: Strength training, Postural training, Flexibilty training, Passive ROM, Active ROM and Scapular Strength/Stabilization Comment: RTC For the Purpose of:: To decrease pain, To increase ROM, To improve muscle performance and motor function, To increase tolerance to ac tivity/condition/position, To improve ability of physical actions for home/community/work/leisure, To improve health of tissue, To decrease soft tissue restriction, To increase flexibility/ROM, To reduce risk of recurrence and To improve tolerance to ADL's Manual Therapy Techniques to Include: Passive ROM For the Purpose of:: To decrease pain, To increase ROM, To improve health of tissue and To decrease soft tissue restriction TENS: Yes IF ES: Yes Cryotherapy (ice pack, ice massage): Yes For the Purpose of:: To decrease pain, To increase ROM, To improve nutrient delivery to tissue and To increase oxygenation perfusion Text: Thank you for the opportunity to evaluate your patient. For Medicare and Medicare HMO plans, please review the plan of care and approve it. It will need to be FAXED BACK to us at [phone] for Medicare purposes. For Medicare only, by signing this I certify the plan of care. Please let me know if there are questions or concerns regarding this plan of c are. Physician Signature: Date:
--- NOTE | 2025-10-26 16:13 | HP.PTDCSUM ---
Discharge Summary D/C summary: It has been my pleasure to treat TOMAS CAMPBELL referred by Dr. Tyrone Freeman DO, with the diagnosis of STRAIN OF MUSCLE/TENDON RTC OF RIGHT SHOULDER for a total of 27 visit(s). Discharge Date: 10/26/25 Please see the following information for a summary of their discharge status. Subjective Subjective: Doing good .. Pain Right Shoulder: Pain Intensity (Out of 10): 0 Right UT: Pain Intensity (Out of 10): 0 R elbow: Pain Intensity (Out of 10): 0 Overall Improvement % Improvement: 75 Objective Objective/Function: POSTURE: rounded shoulders AROM: shoulder flexion 160 degrees ,abduction 1670 degrees ,ER 90 ,IR L2 PROM: shoulder flexion 170 degrees ,abduction 170 degrees MMT: infraspinatus 17.3 ,supraspinatus 15.2 ,deltoid 12.4 ,subscapularis 20./2 Goals Goal 1:: Patient to be I with HEP for shoulder RTC repair Goal Progress: Goal Met Goal 2:: Patient to improve AROM shoulder flexion/abduction by 150 degrees to improve ADL's and housework Goal Progress: Goal Met Goal 3:: Patient to improve peak force RTC and deltoid by 10-15# of strength for ADL's Goal Progress: Goal Met Goal 4:: Patient to improve shoulder oswestry score by 5-8 points to improve QOL Goal Progress: Goal Met Goal 5:: Patient to return to prior level of function 75% and no pain Goal Progress: Goal Met Plan Plan: d/c to HEP D/C Information Discharge Comments: HEP d/c sentence: If there are questions or concerns regarding this patient's physical therapy, please feel free to call me at [phone]. Thank you for the referral of this patient. Sincerely, Shravan Carias, PT, Cert MDT, OCS Balance/Gait/Functional tests Balance/Special Test Scores Quick DASH Score: 9.0900 Improvement % Improvement: 75
== END 2025-10-26 19:00 | disposition home or self-care (01) ==
LOC: PT 15:30
PROVIDERS: PCP Internal Medicine; Referring Provider Student in an Organized Health Care Education/Training Program; Visit Provider Student in an Organized Health Care Education/Training Program
DX: S46.011D Strain of muscle(s) and tendon(s) of the rotator cuff of right shoulder, subsequent encounter (principal); M25.511 Pain in right shoulder
CPT/HCPCS: 97035; 97110; 97140; 97162; 97530